=== PATIENT | female | born 1940 | race Caucasian/White ===

== ENCOUNTER 2017-12-14 21:36 | Observation (INO) | payer OTHER ==
[~2017-12-14] VITALS: Ht 147.3 cm; Wt 56.7 kg
[~2017-12-14 21:36] MED LIST: ASPIRIN325 PO; CLONIDINE0.1 PO; LAMICTAL100 MG PO; LEVOTHYROXIN0.025 MG PO; OMEPRAZOLE40 MG PO; STRESS B COMPLEX PO; TOPROL XL25 MG PO; TUMS PO; VITAMIN A PO; XANAX 0.5 MG0.5 MG PO
[2017-12-14 21:39] VITALS: BP 165/72
[2017-12-14] MEDS ORDERED: CALCIUM 500 +1 EAC5 PO (21:46)
[2017-12-14] MEDS ORDERED: PILOCARPINE HCL5 M1 ×2 (21:48)
[2017-12-14 21:58] LABS: ABSOLUTE BASOPHILS 0.1 thou/uL (0.0-0.2); ABSOLUTE EOSINOPHILS 0.2 thou/uL (0.0-0.7); ABSOLUTE LYMPHOCYTES 2.3 thou/uL (0.8-5.3); ABSOLUTE MONOCYTES 0.7 thou/uL (0.0-1.2); ABSOLUTE NEUTROPHILS 4.1 thou/uL (1.6-8.1); BASOPHILS 0.8 %; EOSINOPHILS 2.1 %; HEMATOCRIT 39.2 % (37.0-47.0); HEMOGLOBIN 13.3 gm/dL (12.0-15.0); LYMPHOCYTES 31.9 %; MCH 32.3 pg (26.0-34.0); MCHC 33.9 g/dL (28.0-37.0); MCV 95.2 fL (80.0-100.0); MONOCYTES 9.5 %; MPV 8.7 fl. (7.2-11.1); NUCLEATED RBCS 0 /100WBC; PLATELET COUNT* 267 thou/uL (150-400); POLYS 55.7 %; RBC 4.12 mil/uL (4.20-5.00); RDW-CV 13.4 % (10.5-14.5); WBC 7.4 thou/uL (4.0-11.0)
[2017-12-14 22:07] LABS: ANION GAP 8 mmol/L (7-16); BUN 13 mg/dL (7-18); CHLORIDE 104 mmol/L (98-107); CO2 30 mmol/L (21-32); CREATININE 0.9 mg/dL (0.6-1.3); GLUCOSE 116 mg/dL (70-99); POTASSIUM 3.9 mmol/L (3.5-5.1); SODIUM 142 mmol/L (136-145)
[2017-12-14 22:11] LABS: APTT 28.1 Seconds (25.0-31.3); INR 1.1; PROTIME 10.7 Seconds (9.20-11.50)
[2017-12-14 22:23] LABS: ALBUMIN 3.8 g/dL (3.4-5.0); ALKALINE PHOSPHATASE 101 U/L (46-116); CK-MB MASS 0.8 ng/mL (<0.5-3.6); LIPASE 314 U/L (73-393); MAGNESIUM 2.1 mg/dL (1.8-2.4); NT-PRO BRAIN NAT PEPTIDE 84 pg/mL (<300); SGOT 20 U/L (15-37); SGPT 31 U/L (30-65); TOTAL BILIRUBIN 0.2 mg/dL (<0.1-1.0); TROPONIN-I LEVEL <0.06 ng/mL (<0.06)
[2017-12-14 23:26] VITALS: BP 162/78
[2017-12-14 23:44] VITALS: BP 126/69
[2017-12-14] MEDS ORDERED: MULTI VITAMIN1 EACH PO (23:57)
[2017-12-15 04:00] VITALS: BP 128/60
--- NOTE | 2017-12-15 07:15 | NUR ---
ASSUMED CARE OF PT ASSESSED AND DOCUMENTED. PT ON CARDIAC MONITER TRACING NSR HR 68. PT IS A&O WITH NO C/O PAIN. VSS WNL. PT IS AFEBRILE. PT IS ON ROOM AIR. PT IS NPO FOR CARDIO. BED IS IN LOW POSTION CALL LIGHT IS IN REACH. WM.
[2017-12-15 07:54] VITALS: BP 99/58
--- NOTE | 2017-12-15 07:56 | NUR ---
PT WAS ADMITTED TO ROOM 210 DURING THIS SHIFT; VSS, A+OX4, DENIES PAIN, OBSERVED TO AMBULATE INDEPENDENTLY AND STEADILY. SHE IS ABLE TO COMMUNICATE HER NEEDS TO STAFF EFFECTIVELY. SHE HAS DENIED THE NEED FOR PAIN MEDICATION UP TO THIS TIME. SHE HAS BEEN NPO SINCE MIDNIGHT FOR A CARDIOLOGY CONSULT TODAY.
--- NOTE | 2017-12-15 09:11 | NUR ---
per re in cardiology pt may eat lite breakfast. stress test 1300. called dietary and put order in.
[2017-12-15 11:49] VITALS: BP 112/65
--- NOTE | 2017-12-15 13:10 | 2DMMODE ---
[place] [address] 2 D/M-MODE ECHOCARDIOGRAM Name: DON MURRAY Room: [address] Tanmay Mcpherson#: [id number] Admission: 12/14/17 Attend Phys: Ny Deal, Discharge: Date of : 42 Date of Service: 12/15/17 1310 Report #: [id number] THIS REPORT FOR: //name// APPROVED REPORT Study performed: 12/15/2017 10:28:44 EXAM: Comprehensive 2D, Doppler, and color-flow Echocardiogram Patient Location: In-Patient Room #: 210 Status: routine BSA: 1.49 HR: 64 bpm BP: 99/58 mmHg Rhythm: NSR Other Information Study Quality: Good Indications Chest Pain 2D Dimensions LVEF(%): 78.03 (>50%) IVSd: 9.99 (7-11mm) LVOT Diam: 17.54 (18-24mm) LVDd: 38.93 mm PWd: 8.78 (7-11mm) Ascending Ao: 26.51 (22-36mm) LVDs: 21.01 (25-40mm) Aortic Root: 27.98 mm Larson's LVEF: 78.03 % Volumes Left Atrial Volume (Systole) LA ESV Index: 10.70 mL/m2 Aortic Valve AoV Peak Hung.: 1.25 m/s AO Peak Gr.: 6.22 mmHg LVOT Max P.61 mmHg AO Mean Gr.: 3.19 mmHg LVOT Mean P.95 mmHg LVOT Max V: 1.07 m/s AO V2 VTI: 26.37 cm LVOT Mean V: 0.62 m/s KANDI (VTI): 2.28 cm2 LVOT V1 VTI: 24.85 cm Mitral Valve E/A Ratio: 1.05 [place] [address] 2 D/M-MODE ECHOCARDIOGRAM Name: DON MURRAY Room: [address] Tanmay Mcpherson#: [id number] Admission: 12/14/17 Attend Phys: Ny Deal, Discharge: Date of : 42 Date of Service: 12/15/17 1310 Report #: [id number] MV Decel. Time: 154.17 ms MV E Max Hung.: 1.00 m/s MV PHT: 44.71 ms MVA (PHT): 4.92 cm2 TDI E/Lateral E': 8.33 E/Medial E': 11.11 Medial E' Hung.: 0.09 m/s Lateral E' Hung.: 0.12 m/s Pulmonary Valve PV Peak Hung.: 0.76 m/s PV Peak Gr.: 2.32 mmHg Tricuspid Valve TR Peak Gr.: 23.58 mmHg RVSP: 28.00 mmHg Left Ventricle The left ventricle is normal size. There is normal LV segmental wall motion. There is normal left ventricular wall thickness. Left ventricular systolic function is normal. The left ventricular ejection fraction is within the normal range. LVEF is 60%. The left ventricular diastolic function is normal. Right Ventricle The right ventricle is normal size. The right ventricular systolic function is normal. Atria The left atrium size is normal. The right atrium size is normal. Aortic Valve The aortic valve is normal in structure. No aortic regurgitation is present. There is no aortic valvular stenosis. Mitral Valve The mitral valve is normal in structure. Trace mitral regurgitation. No evidence of mitral valve stenosis. Tricuspid Valve The tricuspid valve is normal in structure. Mild tricuspid regurgitation. The RVSP is ____28___ mmHg. Pulmonic Valve The pulmonary valve is normal in structure. There is no pulmonic [place] [address] 2 D/M-MODE ECHOCARDIOGRAM Name: DON MURRAY Room: [address] Tanmay Mcpherson#: [id number] Admission: 12/14/17 Attend Phys: Ny Deal, Discharge: Date of : 42 Date of Service: 12/15/17 1310 Report #: [id number] Great Vessels The aortic root is normal in size. IVC is normal in size and collapses with >50% inspiration Pericardium There is no pericardial effusion. <Conclusion> The left ventricle is normal size. There is normal left ventricular wall thickness. Left ventricular systolic function is normal. The left ventricular ejection fraction is within the normal range. LVEF is 60%. The left ventricular diastolic function is normal. The right ventricle is normal size. The left atrium size is normal. The aortic valve is normal in structure. The mitral valve is normal in structure. Trace mitral regurgitation. The tricuspid valve is normal in structure. Mild tricuspid regurgitation. The RVSP is ____28___ mmHg. IVC is normal in size and collapses with >50% inspiration There is no pericardial effusion. There is normal LV segmental wall motion. <ELECTRONICALLY SIGNED> By: Jeovanny Rios MD, FACC 12/15/17 1310 131 131 Jeovanny Rios MD, FACC /INF
[2017-12-15] MEDS ORDERED: ASPIR 8181 MG PO ×2 (13:11)
[2017-12-15 15:58] VITALS: BP 101/62
--- NOTE | 2017-12-15 16:16 | NUR ---
JOHNNIE CALLED PT GOOD TO GO HOME STRESS TEST OK.
--- NOTE | 2017-12-15 16:16 | EKG ---
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: : 1940 Requested By: Bigg Covington Order Number: [id number] MD: Jeovanny Rios Measurements Intervals [place] Rate: 66 P: 63 ND: 158 QRS: 49 QRSD: 82 T: 32 QT: 395 QTc: 414 Interpretive Statements Sinus rhythm Low voltage, precordial leads Baseline wander in lead(s) V6 Compared to ECG 09/26/2015 06:42:01 Low QRS voltage now present Electronically Signed On 12-15-2017 16:16:00 CDT by Jeovanny Rios [email or web address] <ELECTRONICALLY SIGNED> By: Jeovanny Rios MD, [facility] 12/15/17 [phone] Jeovanny Rios MD, [facility] /EPI
--- NOTE | 2017-12-15 16:17 | EKG ---
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 Paralegal: LORY : 1940 Requested By: Bigg Covington Order Number: [id number] Elba MD: Jeovanny Rios Measurements Intervals [place] Rate: 68 P: 58 [place]: 161 QRS: 41 QRSD: 80 T: 29 QT: 420 QTc: 447 Interpretive Statements Sinus rhythm Low voltage, precordial leads Compared to ECG 09/26/2015 06:42:01 Low QRS voltage now present Electronically Signed On 12-15-2017 16:17:12 CDT by Jeovanny Rios [email or web address] <ELECTRONICALLY SIGNED> By: Jeovanny Rios MD, [facility] 12/15/17 1617 0336 0336 Jeovanny Rios MD, FACC /EPI
--- NOTE | 2017-12-15 16:19 | EKG ---
[place] [address] ELECTROCARDIOGRAM REPORT Name: DON MURRAY Room: [address] M.R.#: [id number] Admission: 12/14/17 Attend Phys: Ny Deal MD Discharge: Date of : 42 Report #: [id number] THIS REPORT FOR: //name// [facility] Test Date: 2017-12-15 Test Time: 08:23:53 Pat Name: DON MURRAY Department: Room: [address] Gender: F Signal Fitter: : 1940 Requested By: Bigg Covington Order Number: [id number] Elba MD: Jeovanny Rios Measurements Intervals [place] Rate: 64 P: 52 SD: 155 QRS: 42 QRSD: 78 T: 37 QT: 423 QTc: 437 Interpretive Statements Sinus rhythm Low voltage, precordial leads Compared to ECG 09/26/2015 06:42:01 Low QRS voltage now present Electronically Signed On 12-15-2017 16:18:56 CDT by Jeovanny Rios [email or web address] <ELECTRONICALLY SIGNED> By: Jeovanny Rios MD, [facility] 12/15/17 1618 2 2 Jeovanny Rios MD, [facility] /EPI
--- NOTE | 2017-12-15 16:40 | CARDNUC ---
[place] [address] CARDIAC NUCLEAR IMAGING REPORT Name: DON MURRAY Room: [address] Vida#: [id number] Admission: 12/14/17 Attend Phys: Ny Deal, Discharge: Date of : 42 Date of Service: 12/15/17 1639 Report #: [id number] THIS REPORT FOR: //name// APPROVED REPORT Study performed: 12/15/2017 08:00:00 Exam: Nuclear Stress Test Indication: Chest pain Patient Location: In-Patient Room #: 210 Stress Tech: Olivia Stewart Stress Nurse: Sabina Vickers RN NM Tech:JUAN JOSÉ Benites Ht: 4 ft 10 in Wt: 125 lbs BSA: 1.49 m2 BMI: 26.12 Medical History Medical History: HTN, Hyperlipidemia Medications: clonidine, metoprolol Allergies: codeine, phenytoin, carbamazepine Cardiac Risk Factors: Age, FHX of CAD, HTN, Hyperlipidemia Exercise History: Sedentary Meds Held (24 hrs): inpatient nurse did not hold metoprolol Stress Test Details Stress Test: Pharmacologic stress testing performed using 0.4 mg of regadenoson per 5 mL given IV over 10 seconds. Reason for pharmacologic stress test: physical limitation. HR Resting HR: 68 bpm Max Heart Rate (APMHR): 144 bpm Max HR Achieved: 96 bpm Target HR (85% APMHR): 122 bpm % of APMHR: 66 Recovery HR: 84 bpm HR response to stress: Normal HR response to stress BP Resting BP: 112/65 mmHg Max BP: 120/69 mmHg BP response to stress: Normal blood pressure response [place] [address] CARDIAC NUCLEAR IMAGING REPORT Name: DON MURRAY Room: [address] Vida#: [id number] Admission: 12/14/17 Attend Phys: Ny Deal, Discharge: Date of : 42 Date of Service: 12/15/17 1639 Report #: [id number] Resting ECG: Sinus Rhythm Stress ECG: Sinus Rhythm ST Change: None Arrhythmia: None Recovery ECG: Sinus Rhythm Clinical Reason for Termination: Completed protocol Stress Symptoms: None Exercise duration: 0 min sec Exercise capacity: 1.0 METs Stress ECG Conclusion NSR,no ecg changes NM EXAM: Myocardial Perfusion REST/STRESS Imaging Protocol: Rest Tc-99m/Stress Tc-99m 1 day Resting Data Rest SPECT myocardial perfusion imaging was performed in supine position 30 minutes following the intravenous injection of 10.5 mCi of Tc-99m Sestamibi. Time of rest injection: 1140 Time of rest imagin The images were gated to evaluate regional wall motion and calculate left ventricular ejection fraction. Administration Route: IV Pharmacologic Stress Pharmacologic stress test was performed by injecting Regadenoson 0.4 mg IV push followed by the intravenous injection of 36.0 mCi of Tc-99m Sestamibi. Time of stress injection: 1330 Time of stress imagin Administration Route: IV Gated Stress SPECT was performed 40 minutes after stress injection. The images were gated to evaluate regional wall motion and calculate left ventricular ejection fraction. Prone imaging was performed. Study Quality Study: Good Artifact: Mild Increased GI uptake Lung Uptake: [place] [address] CARDIAC NUCLEAR IMAGING REPORT Name: DON MURRAY Room: [address]#: [id number] Admission: 12/14/17 Attend Phys: Ny Deal, Discharge: Date of : 42 Date of Service: 12/15/17 1639 Report #: [id number] Study Data At rest, the left ventricular ejection fraction was 73%.. Post stress, the left ventricular ejection was 80%.. SSS: 5 SRS: 3 SDS: 2 TID = 1.19. Perfusion Review of rest data reveals normal perfusion, without perfusion defects.Imaging obtained following vasodilator stress demonstrate a similar, uniform uptake of tracer without defects. Prone imaging was normal. LVEDV is normal.No segental wall motion abnormality seen. Wall Motion normal LV function, no wall motion abnormalities Nuclear Conclusion ECG Findings: negative for ischemia Clinical Findings: negative for ischemia Nuclear Findings: negative for ischemia Exercise Capacity: not assessed Left Ventricular Function: normal Risk Study: low Normal perfusion nuclear stress test <Conclusion> NSR,no ecg changes <ELECTRONICALLY SIGNED> By: João Gates MD, FACC 12/15/17 1639 1639 1639 João Gates MD, FACC /INF
[2017-12-15 16:47] VITALS: BP 101/62
--- NOTE | 2017-12-15 17:30 | NUR ---
PT HAS BEEN D/C'D TO HOME. ALL CONSULTS OK WITH D/C. D/C'D IV AND CARDIAC MONITER. EDUCATION GIVEN RE: FOLLOW-UPS, MEDICATIONS, AND DRS ORDERS. PTS AT A [facility] AND WILL BE HERE AT 1900 OR SHORTLY AFTER.
--- NOTE | 2017-12-15 17:40 | NUR ---
PT IS 98%, HR 68 ON ROOM AIR
--- NOTE | 2017-12-15 22:58 | NUR ---
PT DISCHARGED TO HOME. THERAPIST. TAKEN TO FRONT DOOR VIA W/C.
[2017-12-16 00:36] VITALS: BP 117/64
== END 2017-12-15 19:30 | disposition home or self-care (01) ==
LOC: M.ERS 21:36 → M.TBA-ER 22:30 → M.2W 22:30 → M.ERS 23:27 → M.2W 23:37
PROVIDERS: Family Medicine; ADMIT Internal Medicine
DX: R07.9 Chest pain, unspecified (principal); R56.9 Unspecified convulsions; E03.9 Hypothyroidism, unspecified; K21.9 Gastro-esophageal reflux disease without esophagitis; M35.00 Sjogren syndrome, unspecified; F41.1 Generalized anxiety disorder; I10 Essential (primary) hypertension; E78.5 Hyperlipidemia, unspecified; Z90.710 Acquired absence of both cervix and uterus; Z98.890 Other specified postprocedural states

== ENCOUNTER → 2017-12-24 | Outpatient (CLI) | payer OTHER ==
[~2017-12-24] MED LIST changes: +ASPIR 8181 MG PO; +CALCIUM 500 +1 EAC5 PO; +MULTI VITAMIN1 EACH PO; +PILOCARPINE HCL5 M1
== END ==
LOC: M.MRI 06:56
DX: G40.909 Epilepsy, unspecified, not intractable, without status epilepticus (principal)

== ENCOUNTER 2019-06-29 13:43 | Emergency (ER) | payer OTHER ==
[~2019-06-29] VITALS: Ht 149.9 cm; Wt 57.1 kg
[2019-06-29] MEDS ORDERED: REMERON15 M2 PO (14:08)
[2019-06-29 14:30] LABS: URINE BILIRUBIN NEGATIVE (Negative); URINE BLOOD NEGATIVE (Negative); URINE CLARITY CLEAR; URINE COLOR YELLOW; URINE GLUCOSE-RANDOM NEGATIVE (Negative); URINE KETONES NEGATIVE (Negative); URINE LEUKOCYTES-REFLEX NEGATIVE (Negative); URINE NITRITE-REFLEX NEGATIVE (Negative); URINE PROTEIN NEGATIVE (Negative); URINE SPECIFIC GRAVITY <= 1.005 (1.005-1.030); URINE UROBILINOGEN 0.2 E.U./dl (0.2-1.0)
[2019-06-29 14:34] LABS: HEMATOCRIT 39.8 % (37.0-47.0); HEMOGLOBIN 13.4 gm/dL (12.0-15.0); MCH 32.2 pg (26.0-34.0); MCHC 33.8 g/dL (28.0-37.0); MCV 95.4 fL (80.0-100.0); MPV 8.4 fl. (7.2-11.1); NUCLEATED RBCS 0 /100WBC; PLATELET COUNT* 301 thou/uL (150-400); RBC 4.17 mil/uL (4.20-5.00); RDW-CV 13.1 % (10.5-14.5); WBC 11.7 thou/uL (4.0-11.0)
[2019-06-29 14:47] LABS: CALCIUM 9.4 mg/dL (8.5-10.1); CREATININE 0.9 mg/dL (0.6-1.3); POTASSIUM 3.8 mmol/L (3.5-5.1)
[2019-06-29 14:52] LABS: ALBUMIN 3.9 g/dL (3.4-5.0); TOTAL BILIRUBIN 0.3 mg/dL (<0.1-1.0); TOTAL PROTEIN 7.4 g/dL (6.4-8.2)
[2019-06-29 15:06] LABS: ABSOLUTE LYMPHOCYTES 0.7 thou/uL (0.8-5.3); ABSOLUTE MONOCYTES 0.2 thou/uL (0.0-1.2); ABSOLUTE NEUTROPHILS 10.8 thou/uL (1.6-8.1); PLATELET ESTIMATE ADEQUATE
[2019-06-29] MEDS ORDERED: CITRATE OF MAG296 M1 PO ×4 (15:34→15:40)
[2019-06-29] MEDS ORDERED: ZOFRAN4 MG PO (15:34)
[2019-06-29 15:48] VITALS: BP 127/61
== END 2019-06-29 15:48 | disposition home or self-care (01) ==
LOC: M.ERS 13:43
PROVIDERS: Emergency Medicine
DX: K59.00 Constipation, unspecified (principal); R33.9 Retention of urine, unspecified; I10 Essential (primary) hypertension; E03.9 Hypothyroidism, unspecified; K21.9 Gastro-esophageal reflux disease without esophagitis; Z90.49 Acquired absence of other specified parts of digestive tract; Z90.89 Acquired absence of other organs; Z90.721 Acquired absence of ovaries, unilateral; Z90.710 Acquired absence of both cervix and uterus; Z88.5 Allergy status to narcotic agent; Z88.2 Allergy status to sulfonamides

== ENCOUNTER 2019-12-12 00:06 | Emergency (ER) | payer OTHER ==
[~2019-12-12] VITALS: Ht 157.5 cm; Wt 59.2 kg
[~2019-12-12 00:06] MED LIST changes: +CITRATE OF MAG296 M1 PO; +REMERON15 M2 PO; +ZOFRAN4 MG PO
[2019-12-12 00:38] LABS: CALCIUM 9.1 mg/dL (8.5-10.1); POTASSIUM 3.5 mmol/L (3.5-5.1)
[2019-12-12 00:43] LABS: MAGNESIUM 2.3 mg/dL (1.8-2.4); TOTAL BILIRUBIN 0.2 mg/dL (<0.1-1.0); TOTAL PROTEIN 7.8 g/dL (6.4-8.2)
[2019-12-12 00:47] LABS: ABSOLUTE BASOPHILS 0.1 thou/uL (0.0-0.2); ABSOLUTE EOSINOPHILS 0.1 thou/uL (0.0-0.7); ABSOLUTE LYMPHOCYTES 2.8 thou/uL (0.8-5.3); ABSOLUTE MONOCYTES 0.5 thou/uL (0.0-1.2); ABSOLUTE NEUTROPHILS 2.3 thou/uL (1.6-8.1); BASOPHILS 1.2 %; EOSINOPHILS 1.4 %; HEMATOCRIT 39.9 % (37.0-47.0); HEMOGLOBIN 13.6 gm/dL (12.0-15.0); LYMPHOCYTES 48.1 %; MCH 32.2 pg (26.0-34.0); MCHC 34.2 g/dL (28.0-37.0); MCV 94.1 fL (80.0-100.0); MONOCYTES 9.1 %; MPV 8.5 fl. (7.2-11.1); NUCLEATED RBCS 0 /100WBC; PLATELET COUNT* 284 thou/uL (150-400); POLYS 40.2 %; RBC 4.24 mil/uL (4.20-5.00); RDW-CV 12.9 % (10.5-14.5); WBC 5.7 thou/uL (4.0-11.0)
[2019-12-12 01:33] LABS: URINE BILIRUBIN NEGATIVE (Negative); URINE BLOOD TRACE (Negative); URINE CLARITY CLEAR; URINE COLOR YELLOW; URINE GLUCOSE-RANDOM NEGATIVE (Negative); URINE KETONES NEGATIVE (Negative); URINE LEUKOCYTES-REFLEX NEGATIVE (Negative); URINE NITRITE-REFLEX NEGATIVE (Negative); URINE PROTEIN NEGATIVE (Negative); URINE UROBILINOGEN 0.2 E.U./dl (0.2-1.0)
[2019-12-12 01:57] VITALS: BP 140/65
--- NOTE | 2019-12-12 09:41 | EKG ---
[place] [address] ELECTROCARDIOGRAM REPORT Name: DON MURRAY Room: [facility]#: [id number] Admission: 12/12/19 Attend Phys: Discharge: 12/12/19 Date of : 42 Date of Service: 12/12/19 0029 Report #: [id number] THIS REPORT FOR: //name// [facility] ED Test Date: 2019-12-12 Test Time: 00:29:18 Pat Name: DON MURRAY Department: Room: Gender: Well Treatment Offsider: : 1940 Requested By: Laurie Alvarado Order Number: [id number] MD: Jordon Thao Measurements Intervals [place] Rate: 90 P: 18 VT: 149 QRS: 25 QRSD: 80 T: 32 QT: 373 QTc: 457 Interpretive Statements Sinus rhythm nonspecific st changes Low voltage, precordial leads Compared to ECG 12/15/2017 08:23:53 No significant changes Electronically Signed On 12-12-2019 9:39:43 CDT by Jordon Thao [email or web address] <ELECTRONICALLY SIGNED> By: Jordon Thao MD, [facility] 12/12/19 0939 0029 0029 Jordon Thao MD, [facility] /EPI
== END 2019-12-12 01:58 | disposition home or self-care (01) ==
LOC: M.ERS 00:06
PROVIDERS: Emergency Medicine
DX: R56.9 Unspecified convulsions (principal); E03.9 Hypothyroidism, unspecified; K21.9 Gastro-esophageal reflux disease without esophagitis; I10 Essential (primary) hypertension; Z88.5 Allergy status to narcotic agent; Z88.8 Allergy status to other drugs, medicaments and biological substances; Z90.49 Acquired absence of other specified parts of digestive tract; Z90.710 Acquired absence of both cervix and uterus; Z90.89 Acquired absence of other organs

== ENCOUNTER 2019-12-12 13:39 | Inpatient (IN) | payer OTHER ==
[~2019-12-12] VITALS: Ht 167.6 cm; Wt 62.7 kg
[2019-12-12 13:40] VITALS: BP 143/81
[2019-12-12 14:32] LABS: HEMATOCRIT 40.8 % (37.0-47.0); HEMOGLOBIN 13.8 gm/dL (12.0-15.0); MCH 31.5 pg (26.0-34.0); MCHC 33.8 g/dL (28.0-37.0); MCV 93.1 fL (80.0-100.0); MPV 8.9 fl. (7.2-11.1); NUCLEATED RBCS 0 /100WBC; PLATELET COUNT* 324 thou/uL (150-400); RBC 4.38 mil/uL (4.20-5.00); RDW-CV 12.8 % (10.5-14.5); URINE BILIRUBIN NEGATIVE (Negative); URINE BLOOD 2+ (Negative); URINE CLARITY CLEAR; URINE COLOR YELLOW; URINE GLUCOSE-RANDOM NEGATIVE (Negative); URINE KETONES NEGATIVE (Negative); URINE LEUKOCYTES-REFLEX NEGATIVE (Negative); URINE NITRITE-REFLEX NEGATIVE (Negative); URINE PROTEIN 1+ (Negative); URINE SPECIFIC GRAVITY 1.025 (1.005-1.030); URINE UROBILINOGEN 0.2 E.U./dl (0.2-1.0); WBC 16.3 thou/uL (4.0-11.0)
[2019-12-12 14:34] LABS: APTT 26.5 Seconds (25.0-31.3); PROTIME 10.4 Seconds (9.20-11.50)
[2019-12-12 14:35] LABS: CALCIUM 9.2 mg/dL (8.5-10.1); CREATININE 1.4 mg/dL (0.6-1.3); POTASSIUM 3.5 mmol/L (3.5-5.1)
[2019-12-12 14:37] LABS: BACTERIA-REFLEX >30 Many /HPF (None Seen); CASTS None Seen /LPF (None Seen); SQUAMOUS 0-3 Few /LPF (0-3); URINE RBC 0-2 Rare /HPF (0-2); URINE WBC-REFLEX 0-5 Rare /HPF (0-5)
[2019-12-12 14:38] LABS: URIC ACID CRYSTALS >10 Many /LPF (None Seen)
[2019-12-12 14:42] LABS: ALBUMIN 4.4 g/dL (3.4-5.0); TOTAL BILIRUBIN 0.4 mg/dL (<0.1-1.0); TOTAL PROTEIN 8.5 g/dL (6.4-8.2)
[2019-12-12 14:48] LABS: INFLUENZA A ANTIGEN Negative (Negative); INFLUENZA B ANTIGEN Negative (Negative)
[2019-12-12 15:08] LABS: ABSOLUTE LYMPHOCYTES 1.5 thou/uL (0.8-5.3); ABSOLUTE NEUTROPHILS 13.9 thou/uL (1.6-8.1)
[2019-12-12 15:09] LABS: POIKILOCYTOSIS Occasional
[2019-12-12 21:48] VITALS: BP 142/71
[2019-12-12 22:05] VITALS: BP 123/70
[2019-12-13] VITALS: BP 104/55
[2019-12-13 04:00] VITALS: BP 106/66
[2019-12-13 07:45] VITALS: BP 127/70
--- NOTE | 2019-12-13 09:24 | EKG ---
[place] [address] ELECTROCARDIOGRAM REPORT Name: DON MURRAY Room: [address] IN [facility]#: [id number] Admission: 12/12/19 Attend Phys: Ny Deal, Discharge: Date of : 42 Date of Service: 12/12/19 1344 Report #: [id number] THIS REPORT FOR: //name// [facility] ED Test Date: 2019-12-12 Test Time: 13:44:31 Pat Name: DON MURRAY Department: Room: [facility] Gender: F Sander Setter: REFUGIO : 1940 Requested By: Bigg Covington Order Number: [id number] MD: Jordon Thao Measurements Intervals [place] Rate: 94 P: 38 AK: 149 QRS: 53 QRSD: 77 T: 21 QT: 364 QTc: 456 Interpretive Statements Sinus rhythm Low voltage, precordial leads Minimal ST depression, anterolateral leads Baseline wander in lead(s) I,III,aVR,aVL Compared to ECG 12/12/2019 00:29:18 No significant changes Electronically Signed On 12-13-2019 9:23:00 CDT by Jordon Thao [email or web address] <ELECTRONICALLY SIGNED> By: Jordon Thao MD, FACC 12/13/19 0923 1344 1344 Jordon Thao MD, FAC /EPI
--- NOTE | 2019-12-13 11:16 | 2DMMODE ---
[place] [address] 2 D/M-MODE ECHOCARDIOGRAM Name: DON MURRAY Room: [address] IN .R.#: [id number] Admission: 12/12/19 Attend Phys: Ny Deal, Discharge: Date of : 42 Date of Service: 12/13/19 1115 Report #: [id number] THIS REPORT FOR: cc: Snehal Ramos,Snehal Randhawa,Jordon Rivera MD [facility] ~ APPROVED REPORT Study performed: 12/13/2019 10:26:29 EXAM: Comprehensive 2D, Doppler, and color-flow Echocardiogram Patient Location: In-Patient Room #: 231 Status: routine BSA: 1.64 HR: 84 bpm BP: 106/66 mmHg Rhythm: NSR Other Information Study Quality: Good Indications Elevated Troponin 2D Dimensions IVSd: 9.57 (7-11mm) LVOT Diam: 17.99 (18-24mm) LVDd: 38.63 mm PWd: 7.76 (7-11mm) Ascending Ao: 25.98 (22-36mm) LVDs: 20.46 (25-40mm) Aortic Root: 24.68 mm Volumes Left Atrial Volume (Systole) LA ESV Index: 9.60 mL/m2 Aortic Valve AoV Peak Hung.: 1.55 m/s AO Peak Gr.: 9.64 mmHg LVOT Max P.01 mmHg AO Mean Gr.: 4.26 mmHg LVOT Mean P.87 mmHg LVOT Max V: 1.23 m/s AO V2 VTI: 26.65 cm LVOT Mean V: 0.78 m/s KANDI (VTI): 2.31 cm2 LVOT V1 VTI: 24.24 [place] [address] 2 D/M-MODE ECHOCARDIOGRAM Name: DON MURRAY Room: [address] [place] ..#: [id number] Admission: 12/12/19 Attend Phys: Ny Deal, Discharge: Date of : 42 Date of Service: 12/13/19 1115 Report #: [id number] Mitral Valve E/A Ratio: 1.08 MV Decel. Time: 145.04 ms MV E Max Hung.: 1.07 m/s MV PHT: 42.06 ms MVA (PHT): 5.23 cm2 TDI E/Lateral E': 15.29 E/Medial E': 9.73 Medial E' Hung.: 0.11 m/s Lateral E' Hung.: 0.07 m/s Pulmonary Valve PV Peak Hung.: 0.94 m/s PV Peak Gr.: 3.57 mmHg Tricuspid Valve RAP Estimate: 5.00 mmHg TR Peak Gr.: 28.92 mmHg RVSP: 34.00 mmHg PA Pressure: 34.00 mmHg Left Ventricle The left ventricle is normal size. There is normal LV segmental wall motion. There is normal left ventricular wall thickness. Left ventricular systolic function is normal. The left ventricular ejection fraction is within the normal range. LVEF is 60-65%. The left ventricular diastolic function is normal. Right Ventricle The right ventricle is normal size. The right ventricular systolic function is normal. Atria The left atrium size is normal. The right atrium size is normal. Aortic Valve The aortic valve is normal in structure. No aortic regurgitation is present. There is no aortic valvular stenosis. Mitral Valve The mitral valve is normal in structure. Trace mitral regurgitation. No evidence of mitral valve stenosis. Tricuspid Valve The tricuspid valve is normal in structure. Mild tricuspid regurgitation. estimated pa pressure 35 [place] [address] 2 D/M-MODE ECHOCARDIOGRAM Name: DON MURRAY Room: [address] IN [facility]#: [id number] Admission: 12/12/19 Attend Phys: Ny Deal, Discharge: Date of : 42 Date of Service: 12/13/19 1115 Report #: [id number] Pulmonic Valve Pulmonic valve is not well visualized. There is no pulmonic valvular regurgitation. Great Vessels The aortic root is normal in size. IVC is normal in size and collapses >50% with inspiration. Pericardium There is no pericardial effusion. <Conclusion> Left ventricular systolic function is normal. The left ventricular ejection fraction is within the normal range. <ELECTRONICALLY SIGNED> By: Jordon Thao MD, FACC 12/13/19 1115 1115 1115 Jordon Thao MD, FACC /INF
--- NOTE | 2019-12-13 11:28 | CON ---
[address] [address] CONSULTATION Name: DON MURRAY Room: [address] IN M.R.#: [id number] Admission: 12/12/19 Attend Phys: Ny Deal MD Discharge: Date of : 42 Report #: [id number] THIS REPORT FOR: //name// cc: Snehal Ramos Linda J. DO ~ THIS REPORT FOR: //name// CC: Ny Bowles DATE OF SERVICE: 12/13/2019 CARDIOLOGY CONSULTATION HISTORY OF PRESENT ILLNESS: The patient is a 79-year-old single white female who was admitted yesterday after her relative thought that she has had a seizure. Apparently, the patient has a previous history of seizures. She is not on the neurologist care at this time. SHE APPARENTLY HAS A PREVIOUS INTOLERANCE TO DILANTIN AND TEGRETOL. She is not very active at this time. She has a history of shortness of breath, although nuclear stress test 2 years ago showed no evidence of ischemia with normal left ventricular function. Previous echocardiogram showed evidence of mild aortic stenosis. She denies a history of chest pain, shortness of breath, palpitations, syncope or peripheral edema. She denies recent fever, cough, bleeding. She was last admitted here to [facility] 2 years ago 11/2017 when she complained of chest pain. Stress test showed no evidence of ischemia. She was brought back to the Emergency Room yesterday afternoon. According to family members, the patient had recurrent episodes of decreased consciousness. However, the patient herself denies any seizure activity, biting of tongue, incontinence following. She was noted to have abnormal troponin. Cardiology consultation requested. PAST MEDICAL HISTORY: Significant for appendectomy, hysterectomy, hypertension, Sjogren's syndrome. MEDICATIONS ON ADMISSION: Included Synthroid, metoprolol, omeprazole, Remeron. She apparently previously had been on Norvasc and clonidine. ALLERGIES: SHE HAS INTOLERANCE TO CODEINE, DILANTIN, AND TEGRETOL. FAMILY HISTORY: Her grandfather had heart disease. SOCIAL HISTORY: She has been 3 times. Currently is single, lives apparently with her parents here in [place]. No smoking or alcohol abuse. REVIEW OF SYSTEMS: No history of stroke, asthma, liver disease, kidney disease, [place] [address] CONSULTATION Name: DON MURRAY Room: [address]#: [id number] Admission: 12/12/19 Attend Phys: Ny Deal MD Discharge: Date of : 42 Report #: [id number] cancer, psychiatric illness, chronic skin condition. PHYSICAL EXAMINATION: GENERAL: Revealed an elderly female lying in bed. She appeared in no distress. VITAL SIGNS: Blood pressure 106/60, pulse 70. She is afebrile. HEENT: She was anicteric. Conjunctivae are pink. Mucous membranes moist. NECK: Veins nondistended. No carotid bruits. CHEST: Clear to auscultation. CARDIOVASCULAR: Regular rate and rhythm, grade 2 systolic ejection murmur along the sternal border. ABDOMEN: Soft. EXTREMITIES: Had no edema. Dorsalis pedis pulse 2+ bilaterally. SKIN: Warm and dry. NEUROLOGIC: Nonfocal. LABORATORY DATA: ECG on admission yesterday afternoon showed a sinus rhythm, nonspecific ST-segment changes. Workup yesterday in the Emergency Room, she had a portable chest x-ray that showed normal heart size and clear lung ferrell. CT scan of the head performed yesterday without contrast showed no acute abnormality, white matter microvascular ischemia changes, volume loss. She actually had a CT scan of the chest using a PE protocol that showed infectious bronchiolitis. No pulmonary embolus. She had previous lab work yesterday, sodium 139, BUN 14, creatinine 1.4, glucose 123, SGOT 43, alkaline phosphate is 124, SGPT 43. Her troponin was 0.20. White blood cell count 16.3, hemoglobin 13.8. IMPRESSION AND RECOMMENDATIONS: 1. No evidence of myocardial infarction with borderline elevation of troponin. Recommend no further cardiac evaluation. Stress test 2 years ago showed no evidence of ischemia. 2. Possible seizures. 3. Hypertension. The patient is on a beta joshua. 4. History of Sjogren's syndrome. 5. History of anxiety disorder. <ELECTRONICALLY SIGNED> By: Jordon Thao MD, [facility] 12/13/19 1128 0843 [id number] Thao MD, FAC /nt
[2019-12-13 16:05] VITALS: BP 131/75; BP 134/74
[2019-12-13 21:00] VITALS: BP 130/78
[2019-12-14] VITALS: BP 138/72
[2019-12-14 04:00] VITALS: BP 130/68
[2019-12-14 11:21] VITALS: BP 130/73
[2019-12-14] MEDS ORDERED: LEVAQUIN 500 M500 M3 PO (11:59)
[2019-12-14 12:01] VITALS: BP 1368/74
--- NOTE | 2019-12-15 12:00 | CON ---
[address] [address] CONSULTATION Name: DON MURRAY Room: [address] IN M.R.#: [id number] Admission: 12/12/19 Attend Phys: Ny Deal MD Discharge: 12/14/19 Date of : 42 Report #: [id number] THIS REPORT FOR: //name// cc: Snehal Ramos Linda J. DO ~ THIS REPORT FOR: //name// CC: Ny Ramos DATE OF SERVICE: 12/13/2019 HISTORY OF PRESENT ILLNESS: This is a 79-year-old female patient whom I have seen in the past. This patient has a lot of anxiety and what looks like pseudoseizures in the past. She was admitted with some altered mental status. There is no family member is there to provide history in this patient. She thinks she may have had a seizure, but does not provide any good history. REVIEW OF SYSTEMS: She indicates she has a seizure disorder, but is not on any seizure medications. I have seen this patient in the past. We have never been able to determine any etiology. This is a longstanding problem. A 14-point review of system was carried out and it was positive for multiple psychiatric issues. FAMILY HISTORY: Unremarkable. SOCIAL HISTORY: I need to talk to the family in this patient. PHYSICAL EXAMINATION: Indicate she is alert. She is responsive. She can follow simple commands. Her memory is poor. Her affect is pretty unusual, but that is baseline for her. Cranial nerve examination and neuromuscular examination appear unchanged. No change in cardiac or respiratory status. Blood pressure is 134/74, respirations 15, temperature is 98.4. LABORATORY DATA: White count is up at 16.3. GFR is low at 36. She has no thyroid mass, no carotid bruits. Her hearing and vision looks adequate. IMPRESSION: This patient had a question of seizures. She had it for long time. We have never been able to determine any cause. She came in with some fever, I will suggest working her up for any systemic infections and I will try to reach the family and discuss further. Neurologically, she had a lot of workup done in the past and I do not think there is any need to repeat that, but we will check an EEG to make sure there [place] [id number] CONSULTATION Name: DON MURRAY Room: [address] IN [facility]#: [id number] Admission: 12/12/19 Attend Phys: Ny Deal MD Discharge: 12/14/19 Date of : 42 Report #: [id number] Thank you very much for this referral. <ELECTRONICALLY SIGNED> By: Jax Galloway MD 12/15/19 1200 07 [id number] Galloway MD /reynold
== END 2019-12-14 15:10 | disposition home or self-care (01) | DRG 100 ==
LOC: M.ERS 13:39 → M.2W 16:38 → M.TBA-ER 16:38 → M.2W 22:53
PROVIDERS: Family Medicine; ADMIT Internal Medicine
DX: G40.909 Epilepsy, unspecified, not intractable, without status epilepticus (principal); G92 Toxic encephalopathy; R65.11 Systemic inflammatory response syndrome (SIRS) of non-infectious origin with acute organ dysfunction; E87.2 Acidosis; N39.0 Urinary tract infection, site not specified; E03.9 Hypothyroidism, unspecified; K21.9 Gastro-esophageal reflux disease without esophagitis; M35.00 Sjogren syndrome, unspecified; F41.9 Anxiety disorder, unspecified; F03.90 Unspecified dementia, unspecified severity, without behavioral disturbance, psychotic disturbance, mood disturbance, and anxiety; I10 Essential (primary) hypertension; Z90.49 Acquired absence of other specified parts of digestive tract; Z90.89 Acquired absence of other organs; Z90.710 Acquired absence of both cervix and uterus; Z90.721 Acquired absence of ovaries, unilateral; Z79.899 Other long term (current) drug therapy

== ENCOUNTER → 2020-02-07 | Outpatient (CLI) | payer OTHER ==
[~2020-02-07] MED LIST changes: +LEVAQUIN 500 M500 M3 PO
--- NOTE | ~2020-02-07 | EEG ---
[address] [address] EEG STUDY REPORT Name: DON MURRAY Stevo Room: [facility]#: [id number] Admission: 02/07/20 Attend Phys: Jax Galloway MD Discharge: Date of : 42 Report #: [id number] THIS REPORT FOR: //name// CC: Snehal Galloway DATE OF SERVICE: 02/07/2020 This patient indicates that she is having seizures. EEG is being done to evaluate that. The patient's EEG was done by placing the electrodes by standard 10-20 system of electrode placement. Both referential and sequential montages were used for recording. Background activity in this patient's EEG is about 11 Hz and 30 microvolt. The patient became drowsy that is associated with bilateral slowing. Photic stimulation is unremarkable. Throughout the record, no active epileptiform activity was noticed. IMPRESSION: This patient's EEG is within normal limits. Thank you very much for this referral. By: 1516 1553Pcatrachita Galloway MD /nt
[2020-02-07 09:12] LABS: ABSOLUTE BASOPHILS 0.1 thou/uL (0.0-0.2); ABSOLUTE EOSINOPHILS 0.1 thou/uL (0.0-0.7); ABSOLUTE LYMPHOCYTES 1.7 thou/uL (0.8-5.3); ABSOLUTE MONOCYTES 0.6 thou/uL (0.0-1.2); ABSOLUTE NEUTROPHILS 4.8 thou/uL (1.6-8.1); BASOPHILS 0.9 %; EOSINOPHILS 1.6 %; HEMATOCRIT 40.5 % (37.0-47.0); LYMPHOCYTES 23.5 %; MCH 32.2 pg (26.0-34.0); MCHC 34.6 g/dL (28.0-37.0); MCV 93.2 fL (80.0-100.0); MPV 8.1 fl. (7.2-11.1); NUCLEATED RBCS 0 /100WBC; PLATELET COUNT* 336 thou/uL (150-400); RBC 4.35 mil/uL (4.20-5.00); RDW-CV 13.4 % (10.5-14.5); WBC 7.3 thou/uL (4.0-11.0)
[2020-02-07 09:22] LABS: ALBUMIN 4.6 g/dL (3.4-5.0); CALCIUM 9.2 mg/dL (8.5-10.1); POTASSIUM 3.1 mmol/L (3.5-5.1); TOTAL BILIRUBIN 0.3 mg/dL (<0.1-1.0); TOTAL PROTEIN 8.6 g/dL (6.4-8.2)
== END ==
LOC: M.LAB 01-31 09:00
PROVIDERS: Psychiatry & Neurology Neuromuscular Medicine
DX: F44.5 Conversion disorder with seizures or convulsions (principal); E03.9 Hypothyroidism, unspecified; F41.1 Generalized anxiety disorder; R90.82 White matter disease, unspecified

== ENCOUNTER 2020-02-16 09:57 | Inpatient (IN) | payer OTHER ==
[~2020-02-16] VITALS: Ht 149.9 cm; Wt 63.1 kg
[2020-02-16 10:02] VITALS: BP 181/87
[2020-02-16] MEDS ORDERED: NORVASC 2.5 MG2.5 M1 PO (10:09)
[2020-02-16] MEDS ORDERED: LAMOTRIGINE250 MG PO (10:11)
[2020-02-16 10:24] LABS: ABSOLUTE LYMPHOCYTES 1.3 thou/uL (0.8-5.3); ABSOLUTE MONOCYTES 0.7 thou/uL (0.0-1.2); BASOPHILS 0.2 %; EOSINOPHILS 0.1 %; HEMATOCRIT 38.9 % (37.0-47.0); HEMOGLOBIN 13.6 gm/dL (12.0-15.0); MCH 32.2 pg (26.0-34.0); MCHC 34.9 g/dL (28.0-37.0); MONOCYTES 6.4 %; MPV 8.5 fl. (7.2-11.1); NUCLEATED RBCS 0 /100WBC; PLATELET COUNT* 347 thou/uL (150-400); POLYS 81.3 %; RBC 4.23 mil/uL (4.20-5.00); RDW-CV 12.9 % (10.5-14.5); WBC 11.1 thou/uL (4.0-11.0)
[2020-02-16 10:39] LABS: CALCIUM 8.9 mg/dL (8.5-10.1)
[2020-02-16 10:44] LABS: ALBUMIN 4.4 g/dL (3.4-5.0); TOTAL BILIRUBIN 0.6 mg/dL (<0.1-1.0); TOTAL PROTEIN 8.6 g/dL (6.4-8.2)
[2020-02-16 10:45] LABS: POTASSIUM 2.6 mmol/L (3.5-5.1)
[2020-02-16 11:08] LABS: URINE BILIRUBIN NEGATIVE (Negative); URINE BLOOD 2+ (Negative); URINE CLARITY CLEAR; URINE COLOR YELLOW; URINE GLUCOSE-RANDOM NEGATIVE (Negative); URINE KETONES TRACE (Negative); URINE LEUKOCYTES-REFLEX NEGATIVE (Negative); URINE NITRITE-REFLEX NEGATIVE (Negative); URINE PROTEIN TRACE (Negative); URINE SPECIFIC GRAVITY 1.015 (1.005-1.030); URINE UROBILINOGEN 0.2 E.U./dl (0.2-1.0)
[2020-02-16 11:18] LABS: SQUAMOUS NONE SEEN /LPF (0-3); URINE RBC 3-10 Few /HPF (0-2); URINE WBC-REFLEX None Seen /HPF (0-5)
[2020-02-16 11:19] LABS: AMORPHOUS URATES Few /LPF (None Seen); BACTERIA-REFLEX None Seen /HPF (None Seen); CASTS None Seen /LPF (None Seen); MUCUS 4-6 Moderate strn/LPF (None Seen)
--- NOTE | 2020-02-16 11:35 | NUR ---
PER PROVIDER ORDER, ADJUSTED 0.9% NS FROM WO TO 125ML/HR.
[2020-02-16 14:57] LABS: PHOSPHORUS* 1.9 mg/dL (2.5-4.9)
[2020-02-16 15:44] LABS: AMP/METHAMP Negative (Negative); BARBITURATES Negative (Negative); BENZODIAZEPINES Negative (Negative); COCAINE Negative (Negative); METHADONE Negative (Negative); OPIATES Negative (Negative); PCP Negative (Negative); THC Negative (Negative)
--- NOTE | 2020-02-16 16:25 | EKG ---
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 : 1940 Requested By: Thor Chung Order Number: [id number] [place] MD: Jeovanny Rios Measurements Intervals [place] Rate: 83 P: 50 HI: 138 QRS: 35 QRSD: 82 T: 35 QT: 385 QTc: 453 Interpretive Statements Sinus rhythm Low voltage, precordial leads Abnormal R-wave progression, early transition Compared to ECG 12/12/2019 13:44:31 No significant change Electronically Signed On 02-16-2020 16:23:27 CDT by Jeovanny Rios [email or web address] <ELECTRONICALLY SIGNED> By: Jeovanny Rios MD, [facility] 02/16/20 1623 1008 1008 Jeovanny Rios MD, [facility] /EPI
[2020-02-16 16:31] VITALS: BP 151/73
[2020-02-16 20:36] VITALS: BP 140/59
[2020-02-16 21:15] VITALS: BP 140/59
[2020-02-16 21:30] VITALS: BP 122/70
[2020-02-16 23:46] VITALS: BP 92/54
[2020-02-17] VITALS (8 sets, daily range): BP systolic 125–154; BP diastolic 59–84
--- NOTE | 2020-02-17 04:42 | NUR ---
PATIENT ARRIVED VIA CART TO ROOM 203. PT ALERT/ORIENTED X4 BUT CONFUSED AND FORGETFUL. 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 PT FORGETS TO USE CALL LIGHT PRIOR TO GETTING OUT OF BED FOR BATHROOM. PT VOIDS YELLOW URINE. PT ON ROOM AIR. FLUIDS INFUSING PER DR ORDER. FREQUENTLY USED ITEMS AND CALL LIGHT WITHIN REACH. SIDERAILS UPX4 AND PADDING IN PLACE FOR SEIZURE PRECAUTIONS. BED ALARM ON. WILL CONTINUE TO MONITOR.
--- NOTE | 2020-02-17 06:00 | NUR ---
PT RECEIVED TEXT FROM THIS AM. ASKED PT IF HE WAS STAYING UP AND I WOULD CALL HIM TO GET MORE INFORMATION ABOUT PATIENT. PT SAID HE GETS UP EARLY. CALL PLACED TO ABRAHAM AND IT WENT STRAIGHT TO VOICE MAIL. MESSAGE LEFT FOR ABRAHAM TO CALL FOR UPDATES ON HIS AND WAS TOLD MORE INFORMATION NEEDED FROM HIM. WAITING FOR RETURN CALL.
--- NOTE | 2020-02-17 10:00 | NUR ---
ASSUMED PT CARE AT 0730. ASSESSMENT COMPLETED CHARTED. ABLE TO MAKE SOME NEEDS KNOWN. WENT TO GIVE PT HER MEDS THIS MORNING AT AROUND 0915 AND FOUND PT ON THE FLOOR IN POSSIBLE POST-DICTAL STATE. NO C/O PAIN OR DISCOMFORT. EXAM COMPLETED BY DOCTOR AND NEW ORDERS GIVEN. PT PUT BACK IN BED AFTER EXAM AND VITALS. PT WOKE UP WHEN SITTING BACK IN BED. SENT FOR TESTING AT THIS TIME. WILL CONTINUE TO MONITOR.
[2020-02-17 10:16] LABS: HEMATOCRIT 34.3 % (37.0-47.0); HEMOGLOBIN 12.2 gm/dL (12.0-15.0); MCH 32.1 pg (26.0-34.0); MCHC 35.7 g/dL (28.0-37.0); MCV 89.8 fL (80.0-100.0); MPV 8.4 fl. (7.2-11.1); RBC 3.82 mil/uL (4.20-5.00); RDW-CV 12.7 % (10.5-14.5); WBC 11.5 thou/uL (4.0-11.0)
[2020-02-17 10:35] LABS: CALCIUM 7.9 mg/dL (8.5-10.1); CREATININE 0.6 mg/dL (0.6-1.3)
[2020-02-17 10:37] LABS: POTASSIUM 2.5 mmol/L (3.5-5.1)
[2020-02-17 10:40] LABS: ALBUMIN 3.9 g/dL (3.4-5.0); CALCIUM 7.7 mg/dL (8.5-10.1); CREATININE 0.6 mg/dL (0.6-1.3); MAGNESIUM 1.9 mg/dL (1.8-2.4); PHOSPHORUS* 2.1 mg/dL (2.5-4.9); TOTAL BILIRUBIN 0.7 mg/dL (<0.1-1.0); TOTAL PROTEIN 7.5 g/dL (6.4-8.2)
[2020-02-17 10:43] LABS: POTASSIUM 2.5 mmol/L (3.5-5.1)
[2020-02-18 04:13] VITALS: BP 145/70
[2020-02-18 04:28] LABS: ALBUMIN 3.4 g/dL (3.4-5.0); CALCIUM 7.5 mg/dL (8.5-10.1); CREATININE 0.6 mg/dL (0.6-1.3); MAGNESIUM 1.8 mg/dL (1.8-2.4); PHOSPHORUS* 1.8 mg/dL (2.5-4.9)
[2020-02-18 04:30] LABS: POTASSIUM 2.8 mmol/L (3.5-5.1)
--- NOTE | 2020-02-18 05:07 | NUR ---
ASSUMED PT CARE AT APPROX 1930. PT IS AWAKE AND ORIENTED X3 WITH PERIODS OF CONFUSION. FISHING TOOL SUPERVISOR IS TRACING SR. PT DENIES PAIN/DISCOMFORT. POTASSIUM REPLETION IN PROGRESS.PT STAYED AWAKE ALL NIGHT AND IS WANTING TO GET OUT OF BED "JUST BECAUSE", REORIENTATION DONE, PT IS CLOSELY MONITORED. PRN ATIVAN GIVEN PER MAR, PT IS ABLE TO SLEEP A LITTLE. HIGH FALL PRECAUTIONS IN PLACE. CALL LIGHT WITHIN REACH.
[2020-02-18 08:00] VITALS: BP 128/60
[2020-02-18 11:51] VITALS: BP 139/70
[2020-02-18 12:39] LABS: CALCIUM 7.4 mg/dL (8.5-10.1); CREATININE 0.6 mg/dL (0.6-1.3); POTASSIUM 3.4 mmol/L (3.5-5.1)
[2020-02-18 12:43] LABS: MAGNESIUM 1.7 mg/dL (1.8-2.4); PHOSPHORUS* 1.3 mg/dL (2.5-4.9)
[2020-02-18 17:32] VITALS: BP 141/58
[2020-02-18 20:00] VITALS: BP 133/69
[2020-02-18 22:27] LABS: CALCIUM 7.5 mg/dL (8.5-10.1); CREATININE 0.6 mg/dL (0.6-1.3)
[2020-02-18 22:34] LABS: POTASSIUM 2.9 mmol/L (3.5-5.1)
[2020-02-18 23:45] VITALS: BP 143/77
[2020-02-19 02:05] LABS: POTASSIUM 2.8 mmol/L (3.5-5.1)
[2020-02-19 02:06] LABS: CALCIUM 7.3 mg/dL (8.5-10.1); CREATININE 0.6 mg/dL (0.6-1.3)
[2020-02-19 04:58] VITALS: BP 139/70
[2020-02-19 06:04] LABS: HEMOGLOBIN 11.4 gm/dL (12.0-15.0); MCH 32.6 pg (26.0-34.0); MCHC 36.9 g/dL (28.0-37.0); MCV 88.5 fL (80.0-100.0); MPV 8.2 fl. (7.2-11.1); RBC 3.5 mil/uL (4.20-5.00); RDW-CV 12.8 % (10.5-14.5); WBC 9.5 thou/uL (4.0-11.0)
[2020-02-19 06:26] LABS: ALBUMIN 3.4 g/dL (3.4-5.0); CALCIUM 7.7 mg/dL (8.5-10.1); CREATININE 0.5 mg/dL (0.6-1.3); MAGNESIUM 1.8 mg/dL (1.8-2.4)
[2020-02-19 07:32] VITALS: BP 101/60
--- NOTE | 2020-02-19 07:38 | NUR ---
PT ALERT TO SELF. FREQUENT URINATION AND STRESS INCONTINENCE. DIFFICULT TO KEEP TRACK OF I+O'S AND GET REST THE PAST COUPLE OF NIGHTS PER STAFF. NOTIFIED. CATHETER ORDERED AND INSERTED WITHOUT DIFFICULTY. DR KERN NOTIFIED OF PT'S CRITICAL SODIUM AND POTASSIUM. ORDERS RECEIVED. CONTINUED WITH Q 4HR LAB CHECKS AND ELECTROLYTE REPLACEMENT. CALL LIGHT IN REACH. HOURLY ROUNDING FOR SAFETY.
--- NOTE | 2020-02-19 08:53 | EKG ---
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
--- NOTE | 2020-02-19 09:46 | NUR ---
Nutrition: Consult received for poor po intake. Pt recently discharged and now readmitted. Wt stable, 130#. Regular tordered. RD ordered Ensure with lunches to improve po intake. Alb 3.4, BG 108. Hx, meds noted. Mild risk.
[2020-02-19 09:54] LABS: CALCIUM 7.5 mg/dL (8.5-10.1); CREATININE 0.6 mg/dL (0.6-1.3); POTASSIUM 3.2 mmol/L (3.5-5.1)
[2020-02-19 12:00] VITALS: BP 113/60
[2020-02-19 14:07] LABS: CALCIUM 7.8 mg/dL (8.5-10.1); CREATININE 0.7 mg/dL (0.6-1.3); POTASSIUM 3.4 mmol/L (3.5-5.1)
--- NOTE | 2020-02-19 14:39 | NUR ---
Pt is A&O. Resides at home with . Normally independent with ADLs, shared IADLs. No DME. No hx of HH or SNF. Per , anticipate that Pt will either need skilled or rehab at [facility]. Therapies ordered. Anticipate that Pt will be inpt for a few days, working to correct K slowly. Following.
[2020-02-19 16:00] VITALS: BP 129/66
--- NOTE | 2020-02-19 16:07 | NUR ---
PATIENT RESTING IN BED. UP WITH ASSIST X1 AND WALKER. PATIENT WAS ASSESSED TO HAVE ORTHOSTATIC HYPOTENSION THIS MORING. AOX1. C/O DIZZY SPELLS WHIT POSITIONAL CHANGE. KAMARA TO DRAIN. RENAL FOLLOWING CLOSELY. HOURLY ROUDNING COMPETD FOR PATINET SAFETY.
[2020-02-19 18:29] LABS: CALCIUM 7.7 mg/dL (8.5-10.1); CREATININE 0.7 mg/dL (0.6-1.3); POTASSIUM 3.3 mmol/L (3.5-5.1)
--- NOTE | 2020-02-19 18:46 | EEG ---
[address] [address] EEG STUDY REPORT Name: DON MURRAY Room: [address] IN M.R.#: [id number] Admission: 02/16/20 Attend Phys: Thor Roberts Discharge: Date of : 41 Report #: [id number] THIS REPORT FOR: //name// CC: Thor Cornelius DATE OF SERVICE: 02/18/2020 This patient is being evaluated for seizure. EEG was done by placing the electrode by standard 10-20 system of electrode placement. Both referential and sequential montages were used for recording. Background activity in this patient's EEG is about 8 Hz and 30 microvolt. It is a symmetrical activity. No active epileptiform activity was noticed. The patient did become drowsy and that is associated with bilateral slowing. Throughout the record, no active epileptiform activity was noted. IMPRESSION: This is a moderately abnormal EEG because it is slow. Slowing is nonspecific, which can occur with encephalopathy, effect of psychotropic medication, dementia, etc. Clinical correlation is recommended. <ELECTRONICALLY SIGNED> By: Jax Galloway MD 02/19/20 1846 1832 1851Pcatrachita Galloway MD /nt
--- NOTE | 2020-02-19 18:46 | CON ---
[address] [address] CONSULTATION Name: DON MURRAY Room: [address] IN M.R.#: [id number] Admission: 02/16/20 Attend Phys: Thor Roberts Discharge: Date of : 41 Report #: [id number] THIS REPORT FOR: //name// cc: Snehal Ramos Linda J. DO ~ THIS REPORT FOR: //name// CC: Thor Cornelius DATE OF SERVICE: 02/17/2020 HISTORY OF PRESENT ILLNESS: This is a 79-year-old female patient who was evaluated by me for seizure. I have known this patient for a long time and she has been to multiple physicians and neurologists. She has a history of pseudoseizure and anxiety. She keeps having these spells and recently did an MRI and an EEG on this patient and that was unremarkable. Today, she was found on the floor basically sitting there. She has done those kind of things before also. She has been like this for a long time. REVIEW OF SYSTEMS: Positive for anxiety and pseudoseizure. She had a CT scan head on admission, which was unremarkable. Here her sodium is very low for some reason. She does have a history of collagen vascular disorder and hypothyroidism. PAST MEDICAL HISTORY: As described above. FAMILY HISTORY: Unremarkable. SOCIAL HISTORY: The patient's is not here, but I have talked to him in the past. PHYSICAL EXAMINATION: NEUROLOGIC: The patient's examination indicate that she is alert, responsive, able to follow simple and complex commands. She does not appear to be much different than before. Her neurological examination does not look much different. VITAL SIGNS: Blood pressure is 142/69, pulse is 77, temperature is 98. LABORATORY DATA: Her white count is up at 11.5 for some reason. She does have 2+ blood in the urine. IMPRESSION: She has a known history of pseudoseizure, but presently she is hyponatremic and her white count is high, I do not know why that is the case. Just to make sure I will do an EEG, but main recommendation is going to be the correction of the patient's hyponatremia [place] [address] CONSULTATION Name: DON MURRAY Room: [address] IN [facility].#: [id number] Admission: 02/16/20 Attend Phys: Thor Roberts Discharge: Date of : 41 Report #: [id number] Thank you very much for this referral and if you have any question, please feel free to contact me. <ELECTRONICALLY SIGNED> By: Jax Galloway MD 02/19/20 1846 1719 2023Pcatrachita Galloway MD /reynold
[2020-02-19 20:00] VITALS: BP 164/77
[2020-02-19 22:09] LABS: CALCIUM 7.8 mg/dL (8.5-10.1); CREATININE 0.7 mg/dL (0.6-1.3)
[2020-02-19 22:21] LABS: POTASSIUM 2.9 mmol/L (3.5-5.1)
[2020-02-19 23:53] VITALS: BP 115/65
[2020-02-20 03:20] LABS: CALCIUM 7.8 mg/dL (8.5-10.1); CREATININE 0.6 mg/dL (0.6-1.3); POTASSIUM 3.2 mmol/L (3.5-5.1)
[2020-02-20 04:36] VITALS: BP 169/82
[2020-02-20 06:11] LABS: HEMATOCRIT 32.4 % (37.0-47.0); HEMOGLOBIN 11.6 gm/dL (12.0-15.0); MCH 32.5 pg (26.0-34.0); MCV 90.2 fL (80.0-100.0); MPV 8.6 fl. (7.2-11.1); RBC 3.59 mil/uL (4.20-5.00); RDW-CV 13.3 % (10.5-14.5); WBC 9.6 thou/uL (4.0-11.0)
[2020-02-20 06:25] LABS: ALBUMIN 3.2 g/dL (3.4-5.0); CALCIUM 7.4 mg/dL (8.5-10.1); CREATININE 0.5 mg/dL (0.6-1.3); MAGNESIUM 1.8 mg/dL (1.8-2.4); PHOSPHORUS* 1.7 mg/dL (2.5-4.9)
[2020-02-20 06:32] LABS: POTASSIUM 2.8 mmol/L (3.5-5.1)
--- NOTE | 2020-02-20 07:03 | NUR ---
PT MORE LUCID THIS SHIFT. ELECTROLYTES MONITORED AND REPLACED Q 4HRS. PT AMBULATED WITH STEADY GAIT WITH WALKER. SLEPT THROUGH NIGHT. CALL LIGHT IN REACH. HOURLY ROUNDING FOR SAFETY.
[2020-02-20 08:00] VITALS: BP 169/73
[2020-02-20 09:56] LABS: CALCIUM 7.9 mg/dL (8.5-10.1); CREATININE 0.6 mg/dL (0.6-1.3); POTASSIUM 3.5 mmol/L (3.5-5.1)
[2020-02-20 11:30] VITALS: BP 141/65
--- NOTE | 2020-02-20 11:41 | NUR ---
Per , Pt will need snf vs rehab at [facility], rehab consult placed. Therapies working with Pt. is at home and available to assist as needed. Pt will be here a few more days. Following.
[2020-02-20 14:13] LABS: CALCIUM 7.9 mg/dL (8.5-10.1); CREATININE 0.7 mg/dL (0.6-1.3); POTASSIUM 3.3 mmol/L (3.5-5.1)
[2020-02-20 16:00] VITALS: BP 147/88
--- NOTE | 2020-02-20 17:10 | NUR ---
Spoke to Dr. Corcoran about pharmacy not being able to obtain tolvaptan before midnight (tier-2 medication that we are unable to borrow upon attempt). Informed her we have conivaptan dose available. She states tolvaptan is the treatment she needs for this patient and wishes to transfer pt.
[2020-02-20 18:04] LABS: CALCIUM 8.4 mg/dL (8.5-10.1); CREATININE 0.8 mg/dL (0.6-1.3); POTASSIUM 3.4 mmol/L (3.5-5.1)
--- NOTE | 2020-02-20 18:36 | NUR ---
RECEIVED CALL FROM 2W THAT PATIENT REQUIRES TOLVAPTAN. PHARMACY UNABLE TO OBTAIN. SPOKE WITH DR. QUACH WHO AGREED TO SPEAK WITH [facility]. INITIATED TRANSFER WITH [facility]-LABS, H&P, PROGRESS NOTES FROM 02/19, RADIOLOGY REPORTS AND FACESHEET FAXED. DR. QUACH SAID TRANSFER WAS NON EMERGENT. [facility] DOES NOT HAVE BEDS TONIGHT. THEY HAVE THE INFORMATION AND WILL REINITIATE TRANSFER IN AM. SPOKE WITH DR. KINSEY ABOUT PATIENT TRANSFERRING TO [facility] FOR TOLVAPTAN NON EMERGENTLY AND THAT THERE ARE NO BEDS TONIGHT. REPORTED CURRENT SODIUM. REPORTED THAT PATIENT WAS ON HYPERTONIC SALINE AND ISN'T ANYMORE. STATED PATIENT CAN WAIT UNTIL TOMORROW FOR TRANSFER. NO FURTHER ORDERS.
[2020-02-20 20:00] VITALS: BP 138/68
--- NOTE | 2020-02-20 20:18 | NUR ---
PT. AOX4, VSS, SR ON MONITOR, DENIES PAIN. NA AND K LEVELS LOW. LABS REPORTED TO DR. MOYER. REQUESTS PT. TRANSFER TO ANOTHER FACILITY IF RX UNABLE TO ARRANGE TOLVAPTAN. DR. MENDOZA NOTIFIED AND HOUSE SUP IS COORDINATING EFFORTS. POTASSIUM ADMINISTERED PER PROTOCOL. NA 3% IVF RESTARTED. REPOEAT LABS TO BE DONE ORDERED AND REPORTED TO DEPUTY SHERIFF GENERALIST/BAILIFF NURSE. HOURLY ROUNDING PERFORMED. CALL LIGHT AND PERSONAL BELONGINGS PLACED WITHIN REACH. PT. OUT OF BED TO CHAIR IN THE AFTERNOON. TOLERATED WITHOUT DIFFICULTY. PT. IN BED, IN NO APPARENT DISTRESS AT THE TIME OF SHIFT CHANGE.
[2020-02-20 22:07] LABS: CALCIUM 8.4 mg/dL (8.5-10.1); CREATININE 0.8 mg/dL (0.6-1.3); POTASSIUM 3.4 mmol/L (3.5-5.1)
[2020-02-21] VITALS: BP 120/67
[2020-02-21 04:00] VITALS: BP 126/66
[2020-02-21 05:08] LABS: CREATININE 0.7 mg/dL (0.6-1.3); POTASSIUM 3.2 mmol/L (3.5-5.1)
--- NOTE | 2020-02-21 07:37 | NUR ---
PT ORIENTED TO SELF AND SITUATION. SLEPT OFF AND ON THROUGH THE NIGHT. PT AMBULATED WITH ASSIST X 1 A FEW TIMES ATTEMPTING TO HAVE BM. NO RESULTS. NEPHROLOGY PAGED THIS AM REGAURDING PT'S LABS. 3% SALINE DISCONTINUED. CALL LIGHT IN REACH. BED ALARM ON FOR SAFETY. COPIED CHART PUT WITH PT'S CHART. DAY RN AND FURNITURE AND BEDDING INSPECTOR NOTIFIED.
[2020-02-21 08:00] VITALS: BP 113/61
[2020-02-21 12:00] VITALS: BP 154/73
--- NOTE | 2020-02-21 12:17 | NUR ---
CM contacted [facility] transfer team, they do not have an available bed at this time, transfer team to contact us and connect Drs for report once bed is available. Updated nurse and Dr. Following.
[2020-02-21 16:00] VITALS: BP 160/53
--- NOTE | 2020-02-21 17:28 | NUR ---
PT IS A/O BUT CONFUSED AND FORGETFUL AT TIMES.VSS.DOWNGRADED TO MED-SURG STATUS.POTASSIUM REPLACED.SODIUM TABLETS GIVEN PER ORDERS WITH A 2 POINT DROP IN SODIUM.PHYSICIAN NOTIFIED NO NEW ORDERS RECEIVED.PT MAY NEED TO TRANSFER TO OTHER HOSPITAL FOR MEDICATION THAT IS NOT AVALIABLE AT THIS FACILITY-WAITING FOR OPEN BED IF STILL INDICATED.PT WORKED WITH PHYSICAL THERAPY AND OT.CALL LIGHT AND FALL PRECAUTIONS IN PLACE.WILL CONTINUE TO MONITOR FOR DURATION OF SHIFT.
[2020-02-21 17:51] LABS: URINE BILIRUBIN NEGATIVE (Negative); URINE BLOOD 2+ (Negative); URINE CLARITY CLEAR; URINE COLOR YELLOW; URINE GLUCOSE-RANDOM NEGATIVE (Negative); URINE KETONES NEGATIVE (Negative); URINE LEUKOCYTES-REFLEX 1+ (Negative); URINE PROTEIN NEGATIVE (Negative); URINE UROBILINOGEN 0.2 E.U./dl (0.2-1.0)
[2020-02-21 17:54] LABS: URINE NITRITE-REFLEX POSITIVE (Negative)
[2020-02-21 18:06] LABS: BACTERIA-REFLEX >30 Many /HPF (None Seen); CASTS None Seen /LPF (None Seen); CRYSTALS None Seen /LPF (None Seen); SQUAMOUS 0-3 Few /LPF (0-3); URINE RBC 3-10 Few /HPF (0-2); URINE WBC-REFLEX >25 Many /HPF (0-5); WBC CLUMPS Moderate (None Seen)
[2020-02-21 19:50] VITALS: BP 162/78
[2020-02-22 00:05] VITALS: BP 151/76
--- NOTE | 2020-02-22 05:21 | NUR ---
PT CARE ASSUMED AT 1930. SAT MAINTAINED IN RA. PT IS CONFUSED. DENIES PAIN AND SOB. CALL LIGHT WITHIN REACH AND BED IN LOW POSITION. HOURLY ROUNDING DONE FOR PT SAFETY.
[2020-02-22 06:07] LABS: CALCIUM 8.4 mg/dL (8.5-10.1); CREATININE 0.8 mg/dL (0.6-1.3); POTASSIUM 3.6 mmol/L (3.5-5.1)
[2020-02-22 11:12] VITALS: BP 158/68
--- NOTE | 2020-02-22 14:27 | NUR ---
Pt does not need to transfer at this time, sodium is improving. Hopeful that Pt will be medically stable to dc to acute rehab tomorrow. Following.
[2020-02-22 16:00] VITALS: BP 170/89
--- NOTE | 2020-02-22 18:24 | NUR ---
I ASSUMED CARE OF THE PATIENT A TRANSFER FROM [facility] AT 1615. I AGREE WITH THE PRIOR NURSES ASSESSMENT. BED IS IN THE LOW LOCKED POSITION AND CALL LIGHT IS IN REACH. HOURLY ROUNDING IS COMPLETED AND PATIENT NEEDS ARE MET. PAIN IS DENIED. SHE IS STEADY ON HER FEET AND USES CALL LIGHT APPRORIATELY. SHE IS ON A STRICT I&O AND HAD DINNER. SHE IS ALERT AND ORIENTED X4 AND HAS SOME DEMENTIA. SHE LIVES AT HOME WITH HER . LABS ARE IMPROVING. WILL CONTINUE TO MONITOR.
[2020-02-22 19:40] VITALS: BP 155/69
--- NOTE | 2020-02-22 20:45 | CON ---
[address] [address] CONSULTATION Name: DON MURRAY Room: [address] IN M.R.#: [id number] Admission: 02/16/20 Attend Phys: Thor Roberts Discharge: Date of : 42 Report #: [id number] THIS REPORT FOR: //name// cc: Snehal Ramos Linda J. DO ~ THIS REPORT FOR: //name// CC: Thor Cornelius NEPHROLOGY CONSULTATION CONSULTING PHYSICIAN: Thor Chung MD REASON FOR CONSULTATION: Hyponatremia, hypokalemia. HISTORY OF PRESENT ILLNESS: A 79-year-old female with a history of anxiety and pseudoseizures, who was brought in with some dizzy spells and a questionable seizure episode. She has been seen by Neurology, was found to have a sodium of 127 on 02/15, down to 118 on 02/16. She is a very limited historian, answering "I do not know" to many of my questions. She denies any weight loss. She denies any diarrhea or vomiting. Has had some nausea. Denies any diuretic type medications. She tells me that she drinks a lot, but cannot give me a quantity of how much she drinks daily. She has no known history of hyponatremia in the past. Looking back on 02/06, she had a sodium of 140. REVIEW OF SYSTEMS: Constitutional, psych, heme, eyes, ENT, respiratory, cardiac, GI, , endocrine, all negative except as documented above and as best can be ascertained. PAST MEDICAL HISTORY: History of pseudoseizures, hypothyroidism, Sjogren syndrome, anxiety, hypertension, GERD, appendectomy, hysterectomy, oophorectomy, cholecystectomy. FAMILY HISTORY: Not pertinent in a 79-year-old female. SOCIAL HISTORY: No tobacco. CURRENT MEDICATIONS: Reviewed. PHYSICAL EXAMINATION: VITAL SIGNS: Blood pressure is 139/70, pulse 83, respirations 18 and temperature 36.3. GENERAL: No acute distress. EYES: Open. EARS: Externally normal. NECK: [place] [address] CONSULTATION Name: DON MURRAY Room: [address] IN [facility]#: [id number] Admission: 02/16/20 Attend Phys: Thor Roberts Discharge: Date of : 42 Report #: [id number] CARDIOVASCULAR: Regular rate. LUNGS: No crackles. ABDOMEN: Soft. MUSCULOSKELETAL: Nontender. PSYCHIATRIC: Awake, alert, but slow to respond. LABORATORY DATA: Sodium 119, potassium 2.8, chloride 86, bicarbonate 23, BUN 8, creatinine 0.6, glucose 105, calcium 7.5, phosphorus 1.8, magnesium , albumin 3.4. ASSESSMENT: 1. Hyponatremia with a sodium of 119 on 02/17; on 02/15, it was 127; on 02/06, it was 140. CT head was unrevealing. Chest x-ray was unrevealing. TSH was 2. Urine sodium 40. 2. Hypokalemia with potassium of 2.8 on 02/17. 3. Hypophosphatemia with phosphorus of 1.8 on 02/17. 4. Anxiety. 5. Pseudoseizures. 6. Hypothyroidism. 7. Sjogren syndrome. 8. Hypertension. PLAN: 1. Recheck a BMP and check a magnesium and phosphorus now. We will have nursing contact me with the results. Currently, the patient is on normal saline with 20 of potassium, did receive additional potassium supplementation earlier as well. Remeron can cause hyponatremia, may wish to consider an alternative medication. We will defer this to primary. 2. Sjogren syndrome, can be associated with hypokalemia as well. We will check a urine potassium. The urine osmolarity is currently pending. We will also check a serum osmolarity. We will follow along with you. Thank you for requesting my opinion in the care and management of this patient. <ELECTRONICALLY SIGNED> By: Stephanie York MD 02/22/20 2045 1208 1234Adilia York MD /nt
[2020-02-23 04:51] LABS: CALCIUM 8.3 mg/dL (8.5-10.1); CREATININE 0.8 mg/dL (0.6-1.3); POTASSIUM 3.5 mmol/L (3.5-5.1)
--- NOTE | 2020-02-23 06:20 | NUR ---
PT ALERT AND ORIENTED. VERY FORGETFUL. MEDS GIVEN PER EMAR. PT DENIES PAIN THIS SHIFT. PT SLEPT WELL THIS SHIFT. SEIZURE PRECAUTIONS IN PLACE. PT GETS OUT OF BED WITHOUT CALLING OUT. FALL PRECAUTION IN PLACE. EDUCATION PROVIDED ON USE OF CALL LIGHT. PT'S SODIUM THIS AM IS 135. SODIUM INCREASED BY 6 FROM LAST DRAW. PER [facility] MESSAGE, ALETA VANG PAGED. DR [place] SHOE ASSOCIATE VOICED NO NEW ORDERS AND SAID TO STILL GO AHEAD AND GIVE NACL MORNING DOSE. CALL LIGHT WITHIN REACH. WILL CONTINUE TO MONITOR.
[2020-02-23 08:00] VITALS: BP 136/83
[2020-02-23 16:00] VITALS: BP 147/79
--- NOTE | 2020-02-23 18:41 | NUR ---
CM NOTIFIED THAT INSURANCE DECLIINED AUTHROIZATION FOR PT.TO GO TO INPT.REHAB, SHE IS TOO HIGH LEVEL OF FUNCTIONING. NOTIFIED . DISCUSSED HOME WITH HOME HEALTH OR SNF. HE WOULD LIKE TO TAKE HER HOME WITH HOME HEALTH. DISCUSSED HOW SHE WAS DOING IN THERAPY AND THAT SHE WAS STILL A LITTEL CONFUSED. HE FEELS HE CAN TAKE CARE OF HER. HE CHOSE [facility] FOR HOME [facility]. IF DISCHARGE IN AM WOULD LIKE TO BE NOTIFIED OF WHEN HE CAN COME TO GET HER. [facility]-FAX / [phone].
--- NOTE | 2020-02-23 18:42 | NUR ---
RECEIVED REPORT FROM USMAN WALTERS. ASSUMED CARE OF PT AROUND 0730. AM ASSESSMENT AND VITALS COMPLETED CHARTED. MEDS PER EMAR. PT DENIED PAIN OR DISCOMFORT THIS SHIFT. UP WITH ASSIST TO BEDSIDE RECLINER FOR MEALS. ABLE TO WORK WITH THERAPIES THIS SHIFT. ABRAHAM CALLED AND RECEIVED UPDATE THIS AM. PT TOLERATING DIET, NEEDS SOME SET UP WITH MEALS. PT VOIDING PER BEDSIDE COMMODE AND BATHROOM. 2 BMS THIS SHIFT. FLUID RESTRICTION INCREASED TO 1500ML - MAINTAINED. PT CURRENTLY WATCHING TV IN BEDSIDE CHAIR. CALL LIGHT IS WITHIN REACH. HOURLY ROUNDING PERFORMED. FALL PRECAUTIONS IN PLACE, PT IS IMPULSIVE.
[2020-02-23 19:40] VITALS: BP 148/88
[2020-02-23 19:45] VITALS: BP 147/79
--- NOTE | 2020-02-24 06:44 | NUR ---
PT SLEPT WELL THIS SHIFT. MEDS GIVEN PER EMAR. FALL PRECAUTIONS IN PLACE. SEIZURE PRECAUTIONS IN PLACE. PROPER USE OF CALL LIGHT THIS SHIFT. PT HAD A BM THIS SHIFT. CALL LIGHT WITHIN REACH. ANTICIPATED DC TO HOME W/ HH TODAY. WILL CONTINUE TO MONITOR.
[2020-02-24 07:40] VITALS: BP 142/79
[2020-02-24 10:50] LABS: CALCIUM 8.7 mg/dL (8.5-10.1); CREATININE 0.8 mg/dL (0.6-1.3)
--- NOTE | 2020-02-24 16:38 | NUR ---
PT A&OX3 WITH SOME CONFUSION/FORGETFULNESS. PT AT TIMES CANNOT RECALL WHERE SHE IS. FALL PRECAUTIONS IN PLACE. PT REMIANS CONTINENT OF B/B, PULL UP BRIEFS PER PT REQUEST. PT REMAINS ON 1500 ML/DAY FLUID RESTRICTION. CM WAS TO INITIATE ARRANGEMENTS FOR HH UPON DC. PT SPOUSE PREFERS [facility]. IV TO R HAND SALINE LOCKED. PT UP SBA TO RESTROOM, GAIT SLOW/STEADY. PT SPENT MOST OF SHIFT UP IN RECLINER. PT DRESSED IN STREET CLOTHES THIS AFTERNOON. PT ABRAHAM WAS UPDATED THIS MORNING BY PHONE. TENTATIVE PLANS TO DC PT TO HOME TOMORROW, SPOUSE AWARE. I/D CONSULTED PER DR MONDRAGON ORDER. PT CURRENTLY RESTS IN RECLINER WITH CALL LIGHT AND CELL PHONE IN REACH. WILL CONTINUE TO MONITOR.
--- NOTE | 2020-02-24 18:32 | NUR ---
PT SON, ESTELLA CALLED FOR UPDATE AND TO DISCUSS HIS CONCERN OF POTENTIAL DEMENTIA. SON STATES THIS PT COULD NOT RECALL HER LOCATION, SHE SAID SHE WAS IN A HOSPITAL IN [place]. SON IS CONCERNED THAT HIS MOTHER IS MORE CONFUSED AND HAS FAMILY HX OF DEMENTIA. SON REQUESTS CASE MGMNT AND/OR PHYSICIAN CONTACT HIM WELL. SON STATES HE HAS CONCERNS ABOUT HIS MOTHER GOING HOME AND HER SAFETY. ESTELLA (JANETT) [phone]
[2020-02-24 19:30] VITALS: BP 184/86
[2020-02-24 21:44] VITALS: BP 150/85
--- NOTE | 2020-02-25 05:03 | NUR ---
PT SLEPT WELL THIS SHIFT. MEDS GIVEN PER EMAR. FALL PRECAUTION IN PLACE. SEIZURE PRECAUTION IN PLACE. CALL LIGHT WITHIN REACH. PT CALLS OUT APPROPRIATELY. WILL CONTINUE TO MONITOR.
[2020-02-25 07:40] VITALS: BP 125/75
[2020-02-25 12:43] LABS: URINE BILIRUBIN NEGATIVE (Negative); URINE BLOOD NEGATIVE (Negative); URINE CLARITY CLEAR; URINE COLOR YELLOW; URINE GLUCOSE-RANDOM NEGATIVE (Negative); URINE KETONES NEGATIVE (Negative); URINE LEUKOCYTES-REFLEX NEGATIVE (Negative); URINE NITRITE-REFLEX NEGATIVE (Negative); URINE PROTEIN NEGATIVE (Negative); URINE SPECIFIC GRAVITY <= 1.005 (1.005-1.030); URINE UROBILINOGEN 0.2 E.U./dl (0.2-1.0)
--- NOTE | 2020-02-25 16:22 | NUR ---
PT AWAKE/ALERT. VSS. PT FORGETFUL AT TIMES. PO ABX ADMINISTERED PER NOV. PT REMAINS ON 1500ML/DAY FLUID RESTRICTION. PT USED CALL LIGHT MORE FREQUENTLY TODAY, ONLY ACTIVATING CHAIR ALARM A FEW TIMES THIS SHIFT. PT EASILY REDIRECTED WHEN ALARM DID SOUND, SHE SAT DOWN AND WAITED FOR ASSISTANCE. DC POSTPONED THIS SHIFT FOR FURTHER MONITORING. IV TO R HAND PATENT, SALINE LOCKED. PT DRESSED IN STREET CLOTHES, UP TO RECLINER THIS SHIFT FOLLOWING BREAKFAST. PT REMAINS CONTINENT OF B/B. SOME LAURYN RED BLOOD NOTED IN STOOL FOLLOWING BM THIS AFTERNOON, PT DOES HAVE HEMORRHOIDS. SON UPDATED BY PHONE THIS AFTERNOON, AND DIRECTED TO SPEAK TO CASE MANAGEMENT REGARDING QUESTIONS ABOUT HOME HEALTH ARRANGEMENTS. UA COLLECTED AND SENT TO LAB ORDERED. NEURO CONSULTED, BUT PHYSICIAN STATES THIS PT WAS SEEN AND SUGGESTS F/U WITH DR RAMSAY OUTSTEVEN FOR FURTHER EXAMS REGARDING CONCERN OF DEMENTIA. PT RESTS IN RECLINER WITH CALL LIGHT, CELL PHONE AND REMOTE IN REACH. WILL CONTINUE TO MONITOR.
[2020-02-25 18:44] LABS: HEMATOCRIT 36.4 % (37.0-47.0); HEMOGLOBIN 12.6 gm/dL (12.0-15.0); MCH 32.5 pg (26.0-34.0); MCHC 34.5 g/dL (28.0-37.0); MCV 94.3 fL (80.0-100.0); MPV 7.4 fl. (7.2-11.1); RBC 3.86 mil/uL (4.20-5.00); RDW-CV 13.9 % (10.5-14.5); WBC 10.2 thou/uL (4.0-11.0)
[2020-02-25 18:53] LABS: CALCIUM 8.6 mg/dL (8.5-10.1); CREATININE 0.8 mg/dL (0.6-1.3); POTASSIUM 5.2 mmol/L (3.5-5.1)
[2020-02-25 20:00] VITALS: BP 147/75
[2020-02-26 04:08] LABS: HEMATOCRIT 35.1 % (37.0-47.0); MCH 32.2 pg (26.0-34.0); MCHC 34.1 g/dL (28.0-37.0); MCV 94.5 fL (80.0-100.0); MPV 7.2 fl. (7.2-11.1); RBC 3.72 mil/uL (4.20-5.00); WBC 8.7 thou/uL (4.0-11.0)
--- NOTE | 2020-02-26 06:02 | NUR ---
PT SLEPT WELL THIS SHIFT. MEDS GIVEN PER EMAR. FALL PRECAUTION IN PLACE. PT CALLED OUT APPRORPIATELY TO USE BATHROOM.CALL LIGHT WITHIN REACH. HOURLY ROUNDINGS MADE. WILL CONTINUE TP MONITOR.
[2020-02-26 07:00] VITALS: BP 120/76
[2020-02-26 07:54] VITALS: BP 147/79
--- NOTE | 2020-02-26 10:36 | NUR ---
Nutrition: Neuro consult ordered. Noted pt tolerating meals, fair appetite. Ensure ordered w/ all meals. K+ 5.2, albumin 3.2. Wt stable past week. Low nutrition risk.
[2020-02-26] MEDS ORDERED: SODIUM CHLORIDE1 G2 PO (11:52)
[2020-02-26] MEDS ORDERED: AMPICILLIN TRI250 MG PO (11:52)
[2020-02-26 12:11] VITALS: BP 147/79
--- NOTE | 2020-02-26 12:42 | NUR ---
PT.TO DISCHARGE TODAY. SHE WILL GO HOME WITH AND HOME HEALTH. HAD CHOSEN [facility] FOR HOME HEALTH. FAXED DICHARGE SUMMARY,FACE SHEET,AND H&P TO [facility]. THEY WILL CALL PT.TO SET UP APPTS.
[2020-02-26 15:08] VITALS: BP 147/79
[2020-02-26] MEDS ORDERED: AMOXICILLIN 50500 MG PO (15:13)
[2020-02-26 15:32] VITALS: BP 147/79
--- NOTE | 2020-02-26 15:32 | NUR ---
PT GIVEN DISCHARGE INFORMATION, CARE NOTES, AND PRESCRIPTIONS. IV REMOVED. PT BELONGINGS GATHERED. HOME MEDS RETURNED TO PATIENT FROM PHARMACY. FALL RISK PRECAUTIONS IN PLACE. HOURLY ROUNDING COMPLETED. PT LEFT VIA WHEELCHAIR WITH NURSING STAFF TO HOME WITH HOME HEALTH.
== END 2020-02-26 15:54 | disposition home health service (06) | DRG 643 ==
LOC: M.ERS 09:57 → M.TBA-ER 11:59 → M.2W 11:59 → M.ORTHSURG 02-22 16:19
PROVIDERS: Internal Medicine; Internal Medicine Nephrology; Personal Emergency Response Attendant; ADMIT Family Medicine; ATTEND Family Medicine
DX: E22.2 Syndrome of inappropriate secretion of antidiuretic hormone (principal); G93.41 Metabolic encephalopathy; E87.2 Acidosis; I95.1 Orthostatic hypotension; E86.0 Dehydration; G40.909 Epilepsy, unspecified, not intractable, without status epilepticus; E03.9 Hypothyroidism, unspecified; M35.00 Sjogren syndrome, unspecified; E87.6 Hypokalemia; I10 Essential (primary) hypertension; K21.9 Gastro-esophageal reflux disease without esophagitis; F41.1 Generalized anxiety disorder; F03.90 Unspecified dementia, unspecified severity, without behavioral disturbance, psychotic disturbance, mood disturbance, and anxiety; E83.39 Other disorders of phosphorus metabolism; R41.0 Disorientation, unspecified; N30.90 Cystitis, unspecified without hematuria; B96.20 Unspecified Escherichia coli [E. coli] as the cause of diseases classified elsewhere; Z79.899 Other long term (current) drug therapy; Z88.1 Allergy status to other antibiotic agents; Z88.5 Allergy status to narcotic agent; Z88.8 Allergy status to other drugs, medicaments and biological substances; Z90.710 Acquired absence of both cervix and uterus; Z90.49 Acquired absence of other specified parts of digestive tract

== ENCOUNTER 2021-03-15 03:23 | Inpatient (IN) | payer OTHER ==
[2021-03-15] VITALS (29 sets, daily range): BP systolic 108–175; BP diastolic 48–112
[~2021-03-15] VITALS: Ht 149.9 cm; Wt 64.9 kg
[~2021-03-15 03:23] MED LIST changes: +AMOXICILLIN 50500 MG PO; +AMPICILLIN TRI250 MG PO; +LAMOTRIGINE250 MG PO; +NORVASC 2.5 MG2.5 M1 PO; +SODIUM CHLORIDE1 G2 PO
[2021-03-15 03:50] LABS: ABSOLUTE LYMPHOCYTES 1.6 thou/uL (0.8-5.3); ABSOLUTE MONOCYTES 0.5 thou/uL (0.0-1.2); ABSOLUTE NEUTROPHILS 9.3 thou/uL (1.6-8.1); BASOPHILS 0.3 %; EOSINOPHILS 0.1 %; HEMATOCRIT 38.9 % (37.0-47.0); HEMOGLOBIN 13.4 gm/dL (12.0-15.0); LYMPHOCYTES 13.6 %; MCH 30.7 pg (26.0-34.0); MCHC 34.6 g/dL (28.0-37.0); MCV 88.9 fL (80.0-100.0); MONOCYTES 4.8 %; NUCLEATED RBCS 0 /100WBC; PLATELET COUNT* 324 thou/uL (150-400); POLYS 81.2 %; RBC 4.38 mil/uL (4.20-5.00); RDW-CV 14.7 % (10.5-14.5); WBC 11.4 thou/uL (4.0-11.0)
[2021-03-15 04:06] LABS: CALCIUM 8.7 mg/dL (8.5-10.1); POTASSIUM 3.5 mmol/L (3.5-5.1)
[2021-03-15 04:11] LABS: ALBUMIN 4.1 g/dL (3.4-5.0); MAGNESIUM 2.3 mg/dL (1.8-2.4); TOTAL BILIRUBIN 0.4 mg/dL (<0.1-1.0); TOTAL PROTEIN 8.2 g/dL (6.4-8.2)
[2021-03-15 04:47] LABS: URINE BILIRUBIN NEGATIVE (Negative); URINE BLOOD 2+ (Negative); URINE CLARITY CLEAR; URINE COLOR YELLOW; URINE GLUCOSE-RANDOM NEGATIVE (Negative); URINE KETONES TRACE (Negative); URINE LEUKOCYTES-REFLEX NEGATIVE (Negative); URINE NITRITE-REFLEX NEGATIVE (Negative); URINE PROTEIN 1+ (Negative); URINE SPECIFIC GRAVITY 1.025 (1.005-1.030); URINE UROBILINOGEN 0.2 E.U./dl (0.2-1.0)
[2021-03-15 05:04] LABS: URINE POTASSIUM-RANDOM 44.3 mmol/L
[2021-03-15 06:01] LABS: SQUAMOUS 0-3 Few /LPF (0-3)
[2021-03-15 06:02] LABS: BACTERIA-REFLEX 1-9 Few /HPF (None Seen); CASTS None Seen /LPF (None Seen); CRYSTALS None Seen /LPF (None Seen); MUCUS None Seen strn/LPF (None Seen); URINE RBC 0-2 Rare /HPF (0-2); URINE WBC-REFLEX 0-5 Rare /HPF (0-5)
--- NOTE | 2021-03-15 08:22 | NUR ---
RECEIVED REPORT FROM ER NURSE AT 0630. PATIENT BROUGHT TO UNIT AT 0640. ASSESSMENT COMPLETED CHARTED. PATIENT ORIENTED TO UNIT, ROOM, BED, CALL-LIGHT, AND HOSPITAL POLICY. FALL PRECAUTIONS IN PLACE FOR PATIENT SAFETY. BED LOCKED AND IN LOWEST POSITION. BED ALARM ON. CLWR. CARDIAC MONITORING IN PLACE. SEIZURE PRECAUTIONS IN PLACE FOR PATIENT SAFETY.
[2021-03-15 08:46] LABS: CALCIUM 7.6 mg/dL (8.5-10.1); CREATININE 0.5 mg/dL (0.6-1.3); POTASSIUM 3.5 mmol/L (3.5-5.1)
--- NOTE | 2021-03-15 10:28 | EKG ---
[place] [address] ELECTROCARDIOGRAM REPORT Name: DON MURRAY Room: [address] [place] .R.#: [id number] Admission: 03/15/21 Attend Phys: Ny Deal, Discharge: Date of : 42 Date of Service: 03/15/21 0328 Report #: [id number] THIS REPORT FOR: //name// [facility] ED Test Date: 2021-03-15 Test Time: 03:28:39 Pat Name: DON MURRAY Department: Room: [facility] Gender: F Photoflash Powder Mixer: [place] : 1940 Requested By: Laurie Alvarado Order Number: [id number] MD: Jeovanny Rios Measurements Intervals [place] Rate: 91 P: 56 CO: 139 QRS: 30 QRSD: 83 T: 10 QT: 371 QTc: 457 Interpretive Statements Sinus rhythm Compared to ECG 02/17/2020 09:46:05 No significant changes Electronically Signed On 03-15-2021 10:28:44 CDT by Jeovanny Rios [email or web address] <ELECTRONICALLY SIGNED> By: Jeovanny Rios MD, [facility] 03/15/21 1028 0328 [id number] Jeovanny Rios MD, [facility] /EPI
[2021-03-15 17:48] LABS: CALCIUM 8.4 mg/dL (8.5-10.1); CREATININE 0.6 mg/dL (0.6-1.3)
[2021-03-15 17:49] LABS: POTASSIUM 2.7 mmol/L (3.5-5.1)
[2021-03-16] VITALS (9 sets, daily range): BP systolic 93–176; BP diastolic 58–97
[2021-03-16 05:29] LABS: HEMATOCRIT 34.4 % (37.0-47.0); HEMOGLOBIN 12.2 gm/dL (12.0-15.0); MCH 30.6 pg (26.0-34.0); MCHC 35.5 g/dL (28.0-37.0); MCV 86.3 fL (80.0-100.0); MPV 7.9 fl. (7.2-11.1); RBC 3.99 mil/uL (4.20-5.00); RDW-CV 14.4 % (10.5-14.5)
[2021-03-16 05:49] LABS: CALCIUM 8.1 mg/dL (8.5-10.1); CREATININE 0.5 mg/dL (0.6-1.3); POTASSIUM 3.4 mmol/L (3.5-5.1)
[2021-03-16 05:50] LABS: CALCIUM 7.8 mg/dL (8.5-10.1); CREATININE 0.5 mg/dL (0.6-1.3); POTASSIUM 3.2 mmol/L (3.5-5.1)
[2021-03-16 11:48] LABS: CALCIUM 7.9 mg/dL (8.5-10.1); CREATININE 0.5 mg/dL (0.6-1.3)
[2021-03-16 11:55] LABS: POTASSIUM 4.2 mmol/L (3.5-5.1)
[2021-03-16 17:25] LABS: CALCIUM 7.6 mg/dL (8.5-10.1); CREATININE 0.5 mg/dL (0.6-1.3)
[2021-03-16 17:27] LABS: POTASSIUM 2.8 mmol/L (3.5-5.1)
[2021-03-16 23:32] LABS: CALCIUM 7.4 mg/dL (8.5-10.1); CREATININE 0.5 mg/dL (0.6-1.3)
[2021-03-16 23:34] LABS: POTASSIUM 2.8 mmol/L (3.5-5.1)
[2021-03-17] VITALS (18 sets, daily range): BP systolic 46–145; BP diastolic 20–80
[2021-03-17 05:10] LABS: CALCIUM 7.4 mg/dL (8.5-10.1); CREATININE 0.6 mg/dL (0.6-1.3); POTASSIUM 3.1 mmol/L (3.5-5.1)
[2021-03-17 09:05] LABS: CALCIUM 7.5 mg/dL (8.5-10.1); CREATININE 0.6 mg/dL (0.6-1.3); MAGNESIUM 2.3 mg/dL (1.8-2.4); POTASSIUM 3.4 mmol/L (3.5-5.1)
--- NOTE | 2021-03-17 14:11 | NUR ---
Nutrition: Pt admitted with seizures, hyponatremia. H/o seizures. Consult received for loss of appetite. Spoke with RN: pt's diet advanced to regular today and she ate well. Wt in Zipdial is recorded as 60#, but in reality is 60kg. Albumin 4.1. Physician indicated severe PCM - defer DX. No nutrition concerns at this time. Mild risk.
[2021-03-17 15:22] LABS: CALCIUM 7.4 mg/dL (8.5-10.1); CREATININE 0.6 mg/dL (0.6-1.3); POTASSIUM 3.1 mmol/L (3.5-5.1)
--- NOTE | 2021-03-17 16:37 | NUR ---
Met with patient and at bedside. Introduced role of CM. Patient lives in a house with 3 steps into the house and steps to the basement, however the patient does not go downstairs. No hx of DME, O2, dialysis or infusion therapy. Hx of HH through [facility] ([facility] Patient was independent with ADLs prior to admission. takes care of all driving. Patient does have a hx of seeing a psychiatrist and dementia was ruled out per , but he doesn't agree that patient isn't starting to develop dementia. Completed DPOA paperwork with patient and . Patient alert and oriented at the time of completion of paperwork. Copy placed on chart and given to patient. Patient and open to HH if needed at discharge. 's correct cell phone number is [phone]. ER reg updated.
--- NOTE | 2021-03-17 19:44 | NUR ---
PT A&O x3 AND FORGETFUL. IN THE ROOM FOR HALF THE DAY. ENCOURAGED DIET, ATE 50-60% OF HER MEALS. INCONTINENT WITH STOOLS. FALL PRECAUTIONS AND SEIZURE PRECAUTIONS IN PLACE.
[2021-03-17 21:28] LABS: CALCIUM 7.6 mg/dL (8.5-10.1); CREATININE 0.7 mg/dL (0.6-1.3); POTASSIUM 3.7 mmol/L (3.5-5.1)
[2021-03-18] VITALS (8 sets, daily range): BP systolic 90–130; BP diastolic 56–79
[2021-03-18 04:00] LABS: CALCIUM 8.3 mg/dL (8.5-10.1); CREATININE 0.8 mg/dL (0.6-1.3); POTASSIUM 3.8 mmol/L (3.5-5.1)
--- NOTE | 2021-03-18 05:32 | NUR ---
PT TO RM 231 IN STABLE CONDITION, VS WITHIN NORMAL RANGES. NO C/O OF PAIN OR SIGNS OF SOA AT THIS TIME. ALL BELONGINGS SENT WITH PT INCLUDING GLASSES.
--- NOTE | 2021-03-18 07:00 | NUR ---
RECEIVED REPORT FROM CLERICAL ADJUSTER. PT TRANSFERRED TO 231 VIA BED AT 0555. PT A&OX3. PT TRACING SR ON TELE. FALL PREACUTIONS IN PLACE. SEIZURE PRECAUTION IN PLACE. CALL LIGHT WITHIN REACH.
--- NOTE | 2021-03-18 11:25 | NUR ---
ASSUMED CARE OF PT AT 0730. PT RESTING IN BED. AT BEDSIDE. A&0X3, FORGETFUL AT TIMES. SEIZURE PRECAUTIONS IN PLACE. TRACING SR ON THE JET DYEING MACHINE TENDER. ON RA SAT UPPER 90'S. PT UP WITH 1 SBA TO BATHROOM. PT RECEIVING IV LEVAQUIN. NEPHRO CONSULT IN PLACE. KAMARA DISCONTINUED THIS MORNING. VOIDING TRIAL IN PLACE. PT GOAL FOR TODAY IS MONITOR LABS, INCREASE ACTIVITY AND DISCHARGE PLANNING. AM ASSESSMENT CHARTED. MEDICATIONS PER MAR. PT REPOSITIONS SELF WITH REMINDERS. HOURLY ROUNDING OBSERVED. BED IN LOW POSITION. CALL LIGHT WITHIN REACH. WILL CONTINUE PLAN OF CARE.
--- NOTE | 2021-03-18 11:57 | NUR ---
PLAN OF CARE: PHYSICIAN INFORMS OF PLAN FOR PT TO POSSIBLY D/C HOME TODAY WITH HH PENDING NEUROLOGY RECOMMENDATIONS. PT ACCEPTS HH, BUT INFORMS THAT SHE CAN NOT RECALL THE NAME OF HER PREVIOUS HH, BUT POSSIBLY [facility]. CM TO FAX PT'S CLINICAL INFO TO [facility]. CM WILL REMAIN AVAILABLE TO ASSIST AND FOLLOW NEEDED.
[2021-03-18] MEDS ORDERED: LEVOFLOXACIN500 MG PO (12:26)
[2021-03-18 18:22] LABS: CALCIUM 8.5 mg/dL (8.5-10.1); CREATININE 0.9 mg/dL (0.6-1.3); POTASSIUM 3.5 mmol/L (3.5-5.1)
--- NOTE | 2021-03-18 19:02 | NUR ---
REPEAT SODIUM 135. PT VOIDING WITHOUT DIFFICULTY POST CATHETER REMOVAL. OK FOR DISCHARGE PER NEPHRO. DISCHARGE ORDERS RECEIVED. DISCHARGE INSTRUCTIONS, CARE NOTES, E SCRIPTS AND FOLLOW UP APPTS GIVEN TO PT. PT COMMUNICATES UNDERSTANDING OF DISCHARGE TEACHING. IV'S AND SUPERVISOR SHIPPING ROOM REMOVED. PT DISCHARGED WITH ALL BELONGINGS AND PAPERWORK VIA WHEELCHAIR WITH NURSING STAFF TO SPOUSE OWN PERSONAL VEHICLE.
== END 2021-03-18 19:02 | disposition home health service (06) | DRG 643 ==
LOC: M.ERS 03:23 → M.TBA-ER 04:34 → M.ICU 04:34 → M.2W 03-18 06:05
PROVIDERS: Emergency Medicine; Internal Medicine; Internal Medicine Nephrology; ADMIT Internal Medicine; ATTEND Internal Medicine
DX: E22.2 Syndrome of inappropriate secretion of antidiuretic hormone (principal); E43 Unspecified severe protein-calorie malnutrition; N39.0 Urinary tract infection, site not specified; E03.9 Hypothyroidism, unspecified; K21.9 Gastro-esophageal reflux disease without esophagitis; F41.9 Anxiety disorder, unspecified; I10 Essential (primary) hypertension; R56.9 Unspecified convulsions; E87.6 Hypokalemia; Z20.822 Contact with and (suspected) exposure to COVID-19; Z90.49 Acquired absence of other specified parts of digestive tract; Z90.710 Acquired absence of both cervix and uterus; Z68.28 Body mass index [BMI] 28.0-28.9, adult; Z79.899 Other long term (current) drug therapy; Z88.5 Allergy status to narcotic agent; Z88.8 Allergy status to other drugs, medicaments and biological substances

== ENCOUNTER → 2021-09-24 | Outpatient (CLI) | payer OTHER ==
[~2021-09-24] MED LIST changes: +LEVOFLOXACIN500 MG PO
--- NOTE | ~2021-09-24 | EEG ---
[address] [address] EEG STUDY REPORT Name: DON MURRAY Room: [facility].#: [id number] Admission: 09/24/21 Attend Phys: Jax Galloway MD Discharge: Date of : 42 Report #: [id number] THIS REPORT FOR: cc: Snehal Ramos Linda J. DO Khosla,Jax Cuevas MD ~ DATE OF SERVICE: 09/24/2021 This patient is being evaluated for the possibility of seizure. EEG was done by placing the electrodes by standard 10-20 system of electrode placement. Both referential and sequential montages were used for recording. Background activity in this patient's EEG is about 9 Hz and 30 microvolt. The patient became drowsy that is associated with bilateral slowing and vertex sharp waves. Photic stimulation is unremarkable. Throughout the record, no active epileptiform activity was noticed. IMPRESSION: This EEG is intermixed with theta range slowing on both sides that is a nonspecific abnormality, which can occur with encephalopathy, effect of psychotropic medication, dementia, etc. Clinical correlation is recommended. By: [id number] Galloway MD /nt
== END ==
LOC: M.CRD 09-05 14:04 → M.MRI 09-22 14:30 → M.CRD 13:00 → M.MRI 13:11
PROVIDERS: ATTEND Psychiatry & Neurology Neuromuscular Medicine
DX: R42 Dizziness and giddiness (principal); E03.9 Hypothyroidism, unspecified; M47.812 Spondylosis without myelopathy or radiculopathy, cervical region; F44.5 Conversion disorder with seizures or convulsions